=== PATIENT | female | born 1995 | race Caucasian/White ===

== ENCOUNTER 2017-10-12 07:54 | Emergency (ER) | payer MEDICAID, SELFPAY ==
[2017-10-12 07:55] VITALS: BP 115/65; PULSE 111; RESP 16; TEMP 37.2; O2SAT 96; BMI 24.7
[2017-10-12 08:00] VITALS: O2SAT 98
--- NOTE | 2017-10-12 08:15 | ED.DCSUM_ITS ---
- ER Visit Summary Date of Service: 10/12/17 Chief Complaint: Subjective fever, headache, myalgias and nonproductive cough History of Present Illness: The patient is a 21 F who presents with flulike symptoms that started yesterday. Multiple family members are presently in the ER with similar symptoms. She complained of subjective fevers myalgias yesterday. She states she has a headache and her headache is worse with coughing. Her cough is nonproductive. She does report nasal congestion and mild postnasal drainage. She denies ear pain. She denies any GI or symptoms. She denies rash. Denies swelling of her joints. She is a smoker. Please read written note for complete detail Physical Examination: Patient's vitals remarkable for heart rate of 111. Head is atraumatic normocephalic. Pupils are equal round reactive. Extraocular muscles are intact. TMs are pearly white with landmarks noted. Nares patent with clear drainage. Posterior pharynx without erythema or exudate. Uvula is midline. There is no dysphonia or dysphasia. Trachea is midline. There is no stridor with auscultation of the neck. Neck is supple. Heart is rapid and regular without murmur, gallop or rub. S1 and S2 are normal. Lungs are clear to auscultation with good movement of air bilaterally. No rash or skin lesions noted. Neuro exam is nonfocal. Test Results: None were obtained Emergency Department Course and Treatment: Since patient symptoms started less than 24 hours ago and she wishes not to miss work will prescribe Tamiflu. Treatment Plan: Prescription for Tamiflu and work excuse for today Disposition: Discharged to home with family members Impression: Influenza This note was generated with [employer] dictation software. It may contain incorrect words, spelling, and punctuation that were not noted in review of the chart prior to signing ED Disposition - Plan for ED Patient: Disposition: Home or Assisted Living Chief Complaint: Cold Sx Instructions: ED Flu Prescriptions: Oseltamivir Phosphate [Tamiflu] 75 mg PO BID #10 cap Referrals: Care Physician,No Primary [Primary Care Provider] - Additional Instructions: Recommend you contacting [place], your insurance carrier, for referral to new physician since Dr. Flores and is no longer in the area. It is in your best interest to stop smoking. Because you smoke you may call for 2-4 weeks. Your prescription was electronically transmitted to [facility]
[2017-10-12 08:25] VITALS: RESP 14; O2SAT 97
== END 2017-10-12 08:25 | disposition home or self-care (01) ==
PROVIDERS: Emergency Provider Emergency Medicine
DX: J11.1 Influenza due to unidentified influenza virus with other respiratory manifestations (principal); F17.200 Nicotine dependence, unspecified, uncomplicated
CPT/HCPCS: 99282

== ENCOUNTER → 2017-12-27 12:53 | Outpatient (CLI) | payer MEDICAID, SELFPAY ==
[2017-12-27 14:49] LABS: Chlamydia Trachomatis by PCR Negative (Negative); Neisserai gonorrhoeae by PCR Negative (Negative); Probe Check PASS; Sample Adequacy Control PASS; Specimen Processing Control PASS
[2017-12-28 14:36] LABS: HPV Reflexed? NOT INDICATED
== END ==
PROVIDERS: Visit Provider Obstetrics & Gynecology
DX: Z32.01 Encounter for pregnancy test, result positive (principal); Z12.4 Encounter for screening for malignant neoplasm of cervix; Z11.3 Encounter for screening for infections with a predominantly sexual mode of transmission
CPT/HCPCS: 87491; 87591; 88175; G0145

== ENCOUNTER → 2018-01-13 11:01 | Outpatient (CLI) | payer MEDICAID, SELFPAY ==
--- NOTE | 2018-01-13 11:01 | DT_ITS ---
This patient was seen during an EMR downtime January 09, 2018 - January 16, 2018. This patient may have a combination of paper and electronic documentation or all paper documentation. All documentation is viewable within the e-chart portion of [employer] for each patient visit.
[2018-01-16 11:37] LABS: HIV - WCH Non-Reactive (Nonreactive); Rubella IgG 110.8 IU/mL
[2018-01-16 18:21] LABS: Hemoglobin 14.3 g/dl (12.0-15.0); Mean Corp Hgb Conc 34.9 g/gl (32-36); Mean Corpuscular Hgb 29.7 pg (27.0-32.0); Mean Corpuscular Volume 85.2 fL (81-99); Mean Platelet Vol. 10.8 fl (6.2-12.0); Platelet Count 317 K/mm3 (150-450); RBC Distribution Width CV 13.3 % (11.6-14.6); Red Blood Count 4.81 M/mm3 (4.2-5.4); Scan Indicated on CBC? Y/N NO; White Blood Count 10.2 K/mm3 (4.4-11.0)
[2018-01-17 15:58] LABS: Thyroid Stim Hormone (TSH) 2.36 uIU/mL (0.358-3.74)
[2018-01-17 15:59] LABS: Amphetamine Urine VISTA NEGATIVE (<1000 ng/mL); Barbiturate Urine VISTA NEGATIVE (< 200 ng/mL); Benzodiazepine Urine VISTA NEGATIVE (< 200 ng/mL); COTININE Drug Screen Positive (<200 ng/mL); Cocaine Urine VISTA NEGATIVE (< 300 ng/mL); Ecstacy Urine VISTA NEGATIVE (< 500 ng/mL); Methadone Urine VISTA NEGATIVE (< 300 ng/mL); PCP Urine VISTA NEGATIVE (< 25 ng/mL); THC Urine VISTA POSITIVE (< 50 ng/mL)
[2018-01-17 16:03] LABS: Glucose, Dipstick Normal (Normal); Ketone-Dipstick Negative (Negative); Leukocyte Esterase-Dipstick Negative /ul (Negative); Nitrite-Dipstick Negative (Negative); Protein-Dipstick Negative (Negative); Specific Gravity, Urine 1.005 (1.002-1.030); Urine Bilirubin Dipstick Negative (Negative); Urine Clarity Clear (Clear); Urine Urobilinogen Normal (Normal)
[2018-01-17 16:04] LABS: Occult Blood-Urine Negative /ul (Negative)
[2018-01-17 16:06] LABS: Color, Urine Straw (Yellow)
[2018-01-20 03:47] LABS: Prenatal RPR NONREACTIVE (NONREACTIVE)
== END ==
PROVIDERS: Visit Provider Obstetrics & Gynecology
DX: Z34.81 Encounter for supervision of other normal pregnancy, first trimester (principal)
CPT/HCPCS: 36415; 80307; 81002; 84443; 85027; 86703; 86762; 86803; 87340

== ENCOUNTER 2018-01-18 20:04 | Emergency (ER) | payer MEDICAID, SELFPAY ==
[2018-01-18 20:05] VITALS: BP 112/54; PULSE 91; RESP 16; TEMP 36.9; O2SAT 98; BMI 24.5
[2018-01-18 20:55] LABS: Pregnancy, Serum, hCG Quali. POSITIVE Negative (0-9 Nonpreg)
--- NOTE | 2018-01-18 21:05 | ED.RN ---
lab called with positive results. positive . dr. renee made aware. no new orders at this time
[2018-01-18] MEDS: Acetaminophen 325 MG Tablet 650 MG PO (21:17)
[2018-01-18 21:19] LABS: Absolute Lymphocyte Count 2.44 X10^3/ul (0.83-4.51); Absolute Neutrophil Count 9.4 X10^3/uL (2.0-7.7); Basophil# 0.02 X10^3/uL; Basophil% 0.1 % (0-1); Eosinophil# 0.12 X10^3/uL; Eosinophils% 0.9 % (0-5); Hematocrit 38.4 % (37-47); Hemoglobin 13.1 g/dl (12.0-15.0); Lymphocyte # 2.44 X10^3/ul (4.0); Lymphocyte % 18.1 % (19-41); Mean Corp Hgb Conc 34.1 g/gl (32-36); Mean Platelet Vol. 10.1 fl (6.2-12.0); Monocyte% 11.1 % (0-10); Neutrophil # 9.37 X10^3/uL (2.7-7.7); Neutrophil % 69.6 % (47-70); Platelet Count 289 K/mm3 (150-450); RBC Distribution Width CV 13.3 % (11.6-14.6); RBC Distribution Width SD 41.1 fl (35.1-43.9); Red Blood Count 4.52 M/mm3 (4.2-5.4); White Blood Count 13.5 K/mm3 (4.4-11.0)
[2018-01-18 21:26] LABS: Bacteria 0 SEEN /hpf (None Seen); Mucous, Urine 0 SEEN /hpf (<or=2+); Red Blood Cells-Urine 0 SEEN /hpf (0-5); Squamous Epithelial Cells - UA 0 SEEN /hpf (5-10); White Blood Cells 0 SEEN /hpf (0-5)
[2018-01-18 21:26] LABS: POSITIVE COUNT NO; POSITIVE DIFFERENTIAL NO; POSITIVE MORPHOLOGY NO
[2018-01-18 21:27] LABS: Color, Urine Yellow (Yellow); Glucose, Dipstick Normal (Normal); Ketone-Dipstick Negative (Negative); Leukocyte Esterase-Dipstick Negative /ul (Negative); Nitrite-Dipstick Negative (Negative); Occult Blood-Urine Negative /ul (Negative); Protein-Dipstick Negative (Negative); Urine Bilirubin Dipstick Negative (Negative); Urine Clarity Clear (Clear); Urine Urobilinogen Normal (Normal)
[2018-01-18 21:32] LABS: Anion Gap 10 (5-15); BUN 8 mg/dL (7-18); BUN/Creat Ratio 11.5 RATIO (10-20); Calcium,Total 8.9 mg/dL (8.5-10.1); Chloride 105 mmol/L (98-107); EST Glomerular Filtration Rate 111 mL/min (>60); Est Glom Filt Rate - Afr Amer 134 mL/min (>60); Estimated Creatinine Clearance 107.93 ml/min; Glucose 101 mg/dL (74-106); Potassium 3.5 mmol/L (3.5-5.1); Sodium Level 136 mmol/L (136-145)
[2018-01-18 22:29] VITALS: BP 123/77; PULSE 65; RESP 18; O2SAT 100
--- NOTE | 2018-01-18 22:39 | ED.DCSUM_ITS ---
- ER Visit Summary Date of Service: 01/18/18 Chief Complaint: Abdominal pain, History of Present Illness: The patient is a 22 F with sudden onset of left- sided abdominal pain at work tonight. 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 She denies that she was lifting or doing anything out of the ordinary. She denies nausea or vomiting. She has had no dysuria. She is currently 10 weeks . She has had no spotting or bleeding. She has already had an ultrasound which confirmed an intrauterine . Physical Examination: Vital signs are unremarkable. Patient sitting upright in bed no acute distress. Head neck examination is normal. Heart is regular rate and rhythm. Lung sounds are clear. Abdomen is soft with left-sided abdominal tenderness along the oblique muscles. There is no guarding or rebound. Active bowel sounds are noted throughout. She has no CVA tenderness. Test Results: CBC and chemistry studies are significantly for white count of 13.5 with normal differential. Urinalysis is normal. Emergency Department Course and Treatment: Patient was given IV fluids along with Tylenol. On repeat evaluation she is resting comfortably. I expressed to her that I believe this is all wall pain. She has already had an ultrasound which confirmed an intrauterine . I do not feel repeat imaging is needed at this time. Treatment Plan: [] Disposition: Discharge Impression: Abdominal wall pain This note was generated with [employer] dictation software. It may contain incorrect words, spelling, and punctuation that were not noted in review of the chart prior to signing ED Disposition - Plan for ED Patient: Chief Complaint: Abd Pain Referrals: Care Physician,No Primary [Primary Care Provider] -
--- NOTE | 2018-01-18 22:39 | ED.DEP ---
ED Disposition - Plan for ED Patient: Disposition: Home or Assisted Living Chief Complaint: Abd Pain Instructions: ED Strain Abdominal Muscle Referrals: Eleuterio Watt MD [STAFF PHYSICIAN] - As Needed
== END 2018-01-18 22:47 | disposition home or self-care (01) ==
PROVIDERS: Emergency Provider Emergency Medicine
DX: O26.891 Other specified pregnancy related conditions, first trimester (principal); R10.9 Unspecified abdominal pain; O99.331 Smoking (tobacco) complicating pregnancy, first trimester; Z3A.10 10 weeks gestation of pregnancy
CPT/HCPCS: 36415; 80048; 81001; 84703; 85025; 99283

== ENCOUNTER → 2018-03-06 09:19 | Outpatient (CLI) | payer MEDICAID, SELFPAY ==
[2018-03-13 20:08] LABS: AFP MoM Value 0.97 (.); AFP Value-EIA 35.2 ng/mL (.); Comment Report (.); DIA MoM Value 1.55 (.); DIA Value-EIA 253.95 pg/mL (.); DSR (By Age) 1081 (.); DSR (Second Trimester) 3759 (.); Gestational Age 16.9 WEEKS (.); Insulin Dep Diabetes No (.); Maternal Age At EDD 23.7 yr (.); hCG MoM 0.76 (.)
[2018-03-14 15:17] LABS: CF, Screen Comment: (.); Gestat. Age Based On Ultrasound (.)
== END ==
PROVIDERS: Visit Provider Obstetrics & Gynecology
DX: Z34.82 Encounter for supervision of other normal pregnancy, second trimester (principal)
CPT/HCPCS: 36415; 81220; 82105; 82677; 84702; 86336

== ENCOUNTER → 2018-05-23 08:41 | Outpatient (CLI) | payer MEDICAID, SELFPAY ==
[2018-05-23 11:06] LABS: Hematocrit 35.9 % (37-47); Hemoglobin 11.8 g/dl (12.0-15.0); Mean Corp Hgb Conc 32.9 g/gl (32-36); Mean Corpuscular Hgb 29.6 pg (27.0-32.0); Mean Corpuscular Volume 90.2 fL (81-99); Mean Platelet Vol. 10.1 fl (6.2-12.0); Platelet Count 301 K/mm3 (150-450); RBC Distribution Width SD 42.2 fl (35.1-43.9); Red Blood Count 3.98 M/mm3 (4.2-5.4); White Blood Count 17.2 K/mm3 (4.4-11.0)
[2018-05-23 11:07] LABS: Scan Indicated on CBC? Y/N NO
[2018-05-23 11:14] LABS: Glucose Challenge Gest 1H 50g 96 mg/dL (70-140)
== END ==
PROVIDERS: Visit Provider Obstetrics & Gynecology
DX: Z34.82 Encounter for supervision of other normal pregnancy, second trimester (principal)
CPT/HCPCS: 36415; 82950; 85027

== ENCOUNTER 2018-05-25 18:00 | Outpatient (CLI) | payer MEDICAID, SELFPAY ==
[2018-05-25 18:14] VITALS: BMI 31.6
[2018-05-25 18:27] LABS: Bacteria 0 SEEN /hpf (None Seen); Mucous, Urine 0 SEEN /hpf (<or=2+); Squamous Epithelial Cells - UA 0 SEEN /hpf (5-10); White Blood Cells 0 SEEN /hpf (0-5)
[2018-05-25 18:34] LABS: Color, Urine Red (Yellow); Glucose, Dipstick Normal (Normal); Ketone-Dipstick Negative (Negative); Leukocyte Esterase-Dipstick 100 /ul (Negative); Nitrite-Dipstick Negative (Negative); Occult Blood-Urine 250 /ul (Negative); Protein-Dipstick 30 mg/dl (Negative); Urine Bilirubin Dipstick Negative (Negative); Urine Clarity Sl. Cloudy (Clear); Urine Urobilinogen Normal (Normal)
[2018-05-25 19:05] LABS: Red Blood Cells-Urine > 100 SEEN /hpf (0-5)
[2018-05-25] MEDS: Lactated Ringers 1,000 ML 999 ML IV (19:20)
[2018-05-25] MEDS: Cefazolin 1 GM/50 ML BAG IV (19:40)
--- NOTE | 2018-05-25 20:35 | OB.TRI.HP_ITS ---
History of Present Illness Date of Service: 06/04/18 Was patient seen by the physician?: Yes Reason For Visit: PELVIC PRESSUSRE, SPOTTING Date of Service: 05/25/18 Final STEPHEN: 08/15/18 Gestational age: 28 Weeks and 2 Days History of Present Illness: 28 plus week intrauterine presents with hematuria. Patient denies any nausea vomiting fever chills pain of any kind. Perhaps slight pelvic pressure but otherwise no symptoms. Good movement is noted. She has had bladder infections in the past but this does not resemble those as there are no symptoms. Allergies No Known Allergies Allergy (Verified 01/18/18 20:04) Laboratory Studies: Laboratory Tests 05/25/18 Range/Units 18:20 Urine Color Red (Yellow) Urine Clarity Sl. Cloudy (Clear) Urine pH 7.0 (5.0 - 8.0) Ur Specific [place] 1.010 (1.002-1.030) Urine Protein 30 H (Negative) mg/dl Urine Glucose (UA) Normal (Normal) mg/dl Urine Ketones Negative (Negative) mg/dl Urine Occult Blood 250 H (Negative) /ul Urine Nitrite Negative (Negative) Urine Bilirubin Negative (Negative) mg/dL Urine Urobilinogen Normal (Normal) mg/dl Ur Leukocyte Esterase 100 H (Negative) /ul Urine RBC > 100 SEEN (0-5) /hpf Urine WBC 0 SEEN (0-5) /hpf Ur Squamous Epith Cells 0 SEEN (5-10) /hpf Urine Bacteria 0 SEEN (None Seen) /hpf Urine Mucus 0 SEEN (<or=2+) /hpf NST - FHR Rate Baby A Decelerations:: None NST Reactive:: Appropriate for gestational age Impression/Plan 28+ week intrauterine with hematuria. Presumed urinary tract infection. No evidence of labor or compromise. Cervix is closed, thick, high without blood noted in the vagina. heart tones reassuring. Minimal uterine irritability noted. Urine analysis with blood but no bacteria noted. Will send urine for culture and sensitivity and treat with Ancef 1 g tonight and then release home and await urine culture results. Return to office early next week for follow-up.
== END 2018-05-25 20:40 | disposition home or self-care (01) ==
LOC: WPOUT 18:06 → WP 18:07
PROVIDERS: Referring Provider Obstetrics & Gynecology; Visit Provider Obstetrics & Gynecology
DX: O26.892 Other specified pregnancy related conditions, second trimester (principal); R31.9 Hematuria, unspecified; Z3A.28 28 weeks gestation of pregnancy
CPT/HCPCS: 96365; 59025; 59050; 81001; 87086; 87088; 99218; J7120; G0378

== ENCOUNTER 2018-05-30 22:01 | Emergency (ER) | payer MEDICAID, SELFPAY ==
[2018-05-30 22:02] VITALS: BP 127/78; PULSE 112; RESP 16; TEMP 36.6; O2SAT 98; BMI 31.8
--- NOTE | 2018-05-30 22:23 | ED.VISSUMM ---
- ER Visit Summary Date of Service: 05/30/18 Chief Complaint: Atraumatic left knee pain History of Present Illness: The patient is a 22 F is currently [address] Watt of [facility]. Patient's due date is August 15. She is a prior history in 2014 and being in a severe 3 [place] accident which left knee and femur. Had surgical repair at that time done in [place]. Since that time she is done well. States for the last 4 days she has had some discomfort and swelling to her left knee. No fever. No chills. No obvious trauma. She states it feels like it is getting give out. She denies any significant redness or warmth. No lower leg pain or swelling. Physical Examination: Well-appearing young female. Vital signs are stable. She is afebrile. She does not look septic or toxic. She is in no acute distress. Her mom is at bedside. H EENT exam unremarkable. Neck nontender no lymphadenopathy. Lungs clear to auscultation bilaterally. Heart regular rhythm no murmur rate about 110. Abdomen soft. Nontender. Gravid nontender uterus. Moving all 4 extremities. Neurovascularly intact. Her left hip is nontender nonswollen. Her left knee mild swelling. Mild effusion. Well-healed prior surgical scars. She has full flexion extension of the left knee. She can lift her entire left leg off the bed. There is no redness. No warmth. When she flexes her knee there is obvious crepitance. Distally the calf ankle and foot are nontender. Neurovascularly intact. No edema. Palpable DP pulse. Normal dorsi and plantar flexion. Normal motor strength and sensation in her left foot. Neurologic exam normal. No focal motor or sensory deficits. Test Results: Left knee x-ray decreased joint space. Old orthopedic hardware. Left femur no acute injury. Well-healed distal femur fracture with orthopedic hardware and screws. The screws and the plate appear to be in normal alignment. Emergency Department Course and Treatment: Repeat exam doing well at 2305. Recheck temperature 98.1. Knee has an effusion but is not warm or red. Does not appear to be a septic joint. Treatment Plan: Patient is our main appointment for June 08 with [facility]. Ice and elevate. Tylenol for pain. This makes it was my watch for any signs of infection. Disposition: Discharge Impression: Acute on chronic left knee pain with joint effusion Prior history of traumatic knee injury with prior orthopedic repair and hardware at 29 weeks This note was generated with [employer] dictation software. It may contain incorrect words, spelling, and punctuation that were not noted in review of the chart prior to signing ED Disposition - Plan for ED Patient: Chief Complaint: Lower Extremity Injury Referrals: Care Physician,No Primary [Primary Care Provider] -
--- NOTE | 2018-05-30 22:30 | RAD_ITS ---
STUDY: X-RAY - LEFT KNEE REASON FOR EXAM: Female, 22 years old. Left knee pain TECHNIQUE: 3 view(s) of the knee. COMPARISON: None. FINDINGS: There is healed fracture in distal left femur. Hardware from internal fixation is still present at the lateral aspect of the distal femur. Normal visualized proximal tibia and fibula. Normal proximal tibiofibular articulation. Normal medial femorotibial compartment. Normal lateral femorotibial compartment. Normal patellofemoral articulation. The soft tissue structures are unremarkable. RAD/Knee 3 Views IMPRESSION: Normal x-ray examination of the knee. Electronically Signed: Liv Villeda MD at 6:00 EDT Tel , Service support ,
--- NOTE | 2018-05-30 22:37 | RAD_ITS ---
STUDY: X-RAY - LEFT FEMUR REASON FOR STUDY: Female, 22 years old. Left knee pain TECHNIQUE: Radiological exam, femur, minimum 2 views COMPARISON: None. FINDINGS: Old healed distal femur fracture. Normal visualized soft tissue structure. Side plate and screws transfix the distal femur. RAD/Femur Min 2 Views IMPRESSION: No acute disease. Status post remote ORIF healed distal femur fracture. Electronically Signed: Jude Martinez MD at 22:58 EDT , Service support ,
--- NOTE | 2018-05-30 23:11 | ED.DEP ---
ED Disposition - Plan for ED Patient: Disposition: Home or Assisted Living Chief Complaint: Lower Extremity Injury Instructions: ED Knee Pain UKO Referrals: Amish Salmon MD [STAFF PHYSICIAN] - Keep Kwadwo appointment Additional Instructions: Ice and elevate. Tylenol for pain. Follow-up with [facility]. Return if fever or redness.
== END 2018-05-30 23:25 | disposition home or self-care (01) ==
PROVIDERS: Emergency Provider Emergency Medicine
DX: O26.893 Other specified pregnancy related conditions, third trimester (principal); M25.462 Effusion, left knee; M25.562 Pain in left knee; Z3A.29 29 weeks gestation of pregnancy; O99.333 Smoking (tobacco) complicating pregnancy, third trimester
CPT/HCPCS: 73552; 73562; 99282

== ENCOUNTER → 2018-07-18 13:13 | Outpatient (CLI) | payer MEDICAID, SELFPAY ==
--- OUTSIDE RECORDS SUMMARY | 2018-09-03 17:11 | XMS RPT_ITS ---
:1995 Author Organization OHIP Support Name Relationship Address Phone HOLLOWAYWILBERLUH Unavailable Unavailable + [place] [address] UE Unavailable Unavailable Unavailable HOLLOWAY, LUH Unavailable Unavailable + [place] [address] UE Unavailable Unavailable Unavailable HERHO Unavailable [address] [facility] [address] + [place] [address] HOLLOWAY, LUH Unavailable Unavailable + [place] [address] HERHO Unavailable [address] [facility] + [place] [address] HOLLOWAY, LUH Unavailable Unavailable + [place] [address] HERHO Unavailable [address] [facility] [facility] [address] + [place] [address] HOLLOWAY, LUH Unavailable Unavailable + [place] [address] HERHO Unavailable [address] [facility]. + [place] [address] HOLLOWAY, LUH Unavailable Unavailable + [place] [address] HERHO Unavailable [address] + [place] [address] HOLLOWAY, LUH Unavailable Unavailable + [place] [address] HERHO Unavailable [address] [facility] [address] + [place] [address] HOLLOWAY, LUH Unavailable Unavailable + [place] [address] HERHO Unavailable [address] [facility]. + [place] [address] HOLLOWAY, LUH Unavailable Unavailable + [facility] [place] [address] SUBWAY Unavailable [address] + [place] [address] WILBER HOLLOWAYNIE Unavailable Unavailable + [place] [address] SUBWAY Unavailable [address] + [place] [address] WILBER HOLLOWAYNIE Unavailable Unavailable + [facility] [address] Care Team Providers Name Role Phone Shukri, Eleuterio Attending Unavailable Primay Care Physicia, No Primary Care Unavailable Seals, Eleuterio Admitting Unavailable Seals, Eleuterio Attending Unavailable Seals, Eleuterio Referring Unavailable Primay Care Physicia, No Primary Care Unavailable Elizabeth So Attending Unavailable Primay Care Physicia, No Primary Care Unavailable Primay Care Physicia, No Primary Care Unavailable Edis Phan Attending Unavailable Seals, Eleuterio Attending Unavailable Primay Care Physicia, No Primary Care Unavailable Seals, Eleuterio Referring Unavailable Cindy Sandoval Attending Unavailable Primay Care Physicia, No Primary Care Unavailable Primay Care Physicia, No Primary Care Unavailable Joselyn Romo Attending Unavailable Seals, Eleuterio Referring Unavailable Seals, Eleuterio Attending Unavailable Primay Care Physicia, No Primary Care Unavailable Seals, Eleuterio Attending Unavailable Primay Care Physicia, No Primary Care Unavailable Berlin Garcia Attending Unavailable Wejames, Berlin Referring Unavailable Primay Care Physicia, No Primary Care Unavailable Primay Care Physicia, No Primary Care Unavailable Keanu Markham Attending Unavailable PROBLEMS PROBLEMS DATE TYPE CONDITION / CODE ATTENDING STATUS SOURCE 08/22/2018 Unknown G89.18 - Other acute SealEleuterio capone Active [facility] post[facility]cedural pain [facility] / G89.18(ICD-10) Hospital Repository 07/18/2018 Unknown Z36.85 - Encounter Eleuterio Watt Active [facility] for Community screening for Hospital Streptococcus B / Repository Z36.85(ICD-10) 05/23/2018 Unknown Z34.82 - Encounter Eleuterio Watt Active [place] for supervision of Community other normal Hospital , second Repository trimester / Z34.82(ICD-10) 02/01/2018 Unknown Z34.81 - Encounter Cindy Sandoval Active [place] for supervision of Community other normal Hospital , first Repository trimester / Z34.81(ICD-10) 12/28/2017 Unknown Z32.01 - Encounter Eleuterio Watt Active [facility] for test, Community result positive / Hospital Z32.01(ICD-10) Repository 12/28/2017 Unknown Z12.4 - Encounter Eleuterio Watt Active [facility] for screening for Community malignant neoplasm Hospital of cervix / Repository Z12.4(ICD-10) 12/28/2017 Unknown Z11.3 - Encounter Eleuterio Watt Active [facility] for screening for Community infections with a Hospital predominantly sexual Repository mode of transmission / Z11.3(ICD-10) PROCEDURES PROCEDURES No Procedure Records FoundRESULTS RESULTS DISCHARGE SUMMARY Observed: 08/22/2018 Status: F Source: [place] 8:33 AM [facility] REPOSITORY [facility] Medical Records Department [address] [place] [address] Discharge Summary 08/22/18 0830 MR#: [id number] Acct: [id number] Name: EARNEST KURTZ Rep #: [id number] : 1995 22 From: Eleuterio Watt MD PCP: Care Physician, No Primary Status: ADM IN Location: [place] [address] Discharge Date and Diagnosis - Problem List Patient Problems: Active and Suspected Problems Arrest of dilation, delivered, current hospitalization (Acute) Date of Admission: 08/19/18 Date of Discharge: 08/22/18 - Primary Discharge Diagnosis Active and Suspected Problems Arrest of dilation, delivered, current hospitalization (Acute), S/P Primary LTCS Hospital Course and Treatment Operations: - - Primary LTCS Procedures: - - Pitocin induction, epidural Summary of Care Provided: The patient is a 22 year old F admitted for post dates induction of labor. Arrested at 7 cm dilation. Primary LTCS performed without complication with delivery of a live wihtout complication. Post operative course unremarkable. Discharged home on POD#2.[] Patient Problems: Active and Suspected Problems Arrest of dilation, delivered, current hospitalization (Acute) - Physical Exam Vital Signs Temp Pulse Resp BP Pulse Ox 97.4 F L 83 14 105/72 100 08/22/18 08:26 08/22/18 08:26 08/22/18 08:26 08/22/18 08:26 08/21/18 20:24 Oxygen Delivery Method Room Air Weight: 219 lb 5.759 oz Body Mass Index (BMI) 37.6 Intake and Output for Last 24 Hours Intake Total 4298 / 4298 2133 / 2133 Output Total 1800 / 1800 2900 / 2900 Balance 2498 / 2498 -767 / -767 Laboratory Tests Past 24 Hrs WBC 19.8 H Discharge Diet: No Restrictions Discharge Activity: Return to Normal Activity, May Not Drive, May not drive while taking narcotic pain medications., May Shower Return to work on:: 10/18/18 May shower in (days): 0 May resume sexual activity in: 4-6 weeks Call your doctor if your incision/area has: Sudden Increased Bleeding, Increased Pain/ Swelling, Increased Redness, Foul Smelling Discharge, Swelling at the incision site Call your doctor if you observe: Fever of 101 or Higher, Inability to urinate, Inability to have a bowel movement, Using more than one pad per hour, Shortness of breath, Chest pain, Calf discomfort, Uncontrolled pain Remove Dressing in (days):: 3 Cleanse incision/area with: Soap AND Water Home Medications: Medications to take at Discharge RX: Vits [Prenatabs FA ] 1 tablet PO DAILY 07/30/18 RX: Ibuprofen 600 mg PO 4X/DAY #30 tab 08/20/18 RX: Oxycodone [Oxyir] 5 - 10 mg PO Q4H PRN PRN 7 Days #28 tab 08/20/18 Following Prescrptions Were Given to Patient: RX: Oxycodone [Oxyir] 5 - 10 mg PO Q4H PRN PRN 7 Days #28 tab PRN Reason: Mod-Severe Pain () RX: Ibuprofen 600 mg PO 4X/DAY #30 tab Primary Care Physician: Care Physician,No Primary [Primary Care Provider] - Please Follow Up With: Eleuterio Watt MD When: 1-2 weeks Disposition: Home Minutes spent on discharge:: 15 Patient Condition:: Good Medical Necessity - Tobacco Use Smoking Status: Current every day smoker Meaningful Use Info Meaningful Use Diagnoses (Choose all that apply): None applicable 08/22/18 6776 <Electronically signed by Eleuterio Watt MD> Date Eleuterio Watt MD Cosigner Signature (if applicable): Date CC: No Primary Care Physician; Eleuterio Watt MD Signed CBC W/DIFF, AUTOMATED Collected: 08/22/2018 Status: F Source: [place] 4:15 AM [facility] REPOSITORY TYPE CODE TESTS RESULT OUT OF RANGE REFERENCE UNITS LAB L100.1000 4.4-11.0 K/mm3 High WBC 19.8 LAB L100.1200 4.2-5.4 M/mm3 Low RBC 3.35 LAB L100.1300 12.0-15.0 g/dl Low HGB 9.2 LAB L100.1400 37-47 % Low HCT 28.8 LAB L100.1500 81-99 fL Normal MCV 86.0 LAB L100.1600 27.0-32.0 pg Normal MCH 27.5 LAB L100.1700 32-36 g/gl Low MCHC 31.9 LAB L100.1810 11.6-14.6 % High RDW CV 15.7 LAB L100.1820 35.1-43.9 fl High RDW SD 47.0 LAB L100.1900 150-450 K/mm3 Normal PLT 270 LAB L100.2000 6.2-12.0 fl Normal MPV 10.4 LAB L100.2100 47-70 % High NEUT% 74.0 LAB L100.2200 19-41 % Low LY% 12.8 LAB L100.2300 0-10 % High MONO% 10.3 LAB L100.2400 0-5 % Normal EO% 1.3 LAB L100.2500 0-1 % Normal BASO% 0.3 LAB L100.2550 0.0-0.9 % High IM GRAN % 1.300 Result Comment: IG% - Immature Granulocytes (promyelocytes, myelocytes and metamyelocytes) > 1% indicates that a LEFT SHIFT is Present. LAB L100.2620 2.0-7.7 X10 3/uL High Absolute Neut 14.7 LAB L100.2720 0.83-4.51 X10 3/ul Normal Absolute Lymph 2.54 Performed By: #### L100.0100 #### [facility] [address] [place], [address] CBC-COMPLETE BLOOD CNT Collected: 08/21/2018 Status: F Source: [place] NO DIFF 6:00 AM [facility] REPOSITORY Order Comment: Comments: Day #1 Reason for Laboratory Test TYPE CODE TESTS RESULT OUT OF RANGE REFERENCE UNITS LAB L100.1000 4.4-11.0 K/mm3 High WBC 20.8 LAB L100.1200 4.2-5.4 M/mm3 Low RBC 3.25 LAB L100.1300 12.0-15.0 g/dl Low HGB 8.9 LAB L100.1400 37-47 % Low HCT 28.1 LAB L100.1500 81-99 fL Normal MCV 86.5 LAB L100.1600 27.0-32.0 pg Normal MCH 27.4 LAB L100.1700 32-36 g/gl Low MCHC 31.7 LAB L100.1810 11.6-14.6 % High RDW CV 15.5 LAB L100.1820 35.1-43.9 fl High RDW SD 46.4 LAB L100.1900 150-450 K/mm3 Normal PLT 235 LAB L100.2000 6.2-12.0 fl Normal MPV 10.4 Performed By: #### L100.0500 #### [facility] [address] [place], [address] DISCHARGE INSTRUCTION Observed: 08/20/2018 Status: F Source: [place] 11:27 AM [facility] REPOSITORY [facility] Medical Records Department [address] [place] [address] Instructions for Home/Discharge Instructions 08/20/18 1126 MR#: [id number] Acct: [id number] Name: EARNEST KURTZ Rep #: [id number] : 1995 22 From: Eleuterio Watt MD PCP: Care Physician, No Primary Status: ADM IN Discharge Diet: No Restrictions Discharge Activity: Return to Normal Activity, May Not Drive, May not drive while taking narcotic pain medications., May Shower Return to work on:: 10/18/18 May shower in (days): 0 May resume sexual activity in: 4-6 weeks Call your doctor if your incision/area has: Sudden Increased Bleeding, Increased Pain/ Swelling, Increased Redness, Foul Smelling Discharge, Swelling at the incision site Call your doctor if you observe: Fever of 101 or Higher, Inability to urinate, Inability to have a bowel movement, Using more than one pad per hour, Shortness of breath, Chest pain, Calf discomfort, Uncontrolled pain Remove Dressing in (days):: 3 Cleanse incision/area with: Soap AND Water Additional Instructions: If you experience any of the following, contact your healthcare provider. * Bleeding that soaks a pad every hour for 2 hours * Fever 100.4 or higher * Unrelieved incision or abdominal pain * Swelling, redness, discharge or bleeding from your incision or episiotomy site * Your incision begins to separate * Problems urinating (including inability to urinate or burning while urinating). * Visual changes * Severe headache * Flu-like symptoms * Pain or redness in one of both of your breasts * Pain, warmth, tenderness or swelling in your legs, especially the calf area * Frequent nausea and vomiting * Symptoms of depression or anxiety If you experience any of the following, call 911 or go to the nearest Emergency Room. * Chest pain * Problems breathing * Seizure activity * Partial or complete paralysis of a body part, slurred speech, weakness or drooping of the face, or a sudden inability to walk or hold your balance Allergies/Adverse Reactions: Allergies No Known Allergies Allergy (Verified 07/30/18 13:42) Medications to take at Discharge Vits [Prenatabs FA ] 1 tablet PO DAILY 07/30/18 Ibuprofen 600 mg PO 4X/DAY #30 tab 08/20/18 Oxycodone [Oxyir] 5 - 10 mg PO Q4H PRN PRN 7 Days #28 tab 08/20/18 The following prescriptions were given: Oxycodone [Oxyir] 5 - 10 mg PO Q4H PRN PRN 7 Days #28 tab PRN Reason: Mod-Severe Pain (4-05/17) Ibuprofen 600 mg PO 4X/DAY #30 tab Follow-Up: Call to make an appointment with your doctor for an incision check in 1-2 weeks. You will also need a 6 week post- follow up appointment. Test results from this visit will be discussed in further detail at your follow-up appointment, if applicable. Please Follow Up With: Eleuterio Watt MD When: 1-2 weeks Primary Care Physician: Care Physician,No Primary [Primary Care Provider] - Proposed Discharge Date: 08/22/18 08/20/18 1127 <Electronically signed by Eleuterio Watt MD> Date Eleuterio Watt MD CC: No Primary Care Physician Signed OPERATIVE REPORT Observed: 08/20/2018 Status: F Source: [place] 11:23 AM [facility] REPOSITORY [facility] Medical Records Department [address] [place] [address] Operative Report 08/20/18 1106 MR#: [id number] Acct: [id number] Name: EARNEST KURTZ Rep #: [id number] : 1995 22 From: Eleuterio Watt MD PCP: Care Physician, No Primary Status: ADM IN Y Location: [id number] Problem List (1) Arrest of dilation, delivered, current hospitalization Status: Acute Report of Operation Date of Procedure: 08/20/18 Pre-Operative Diagnosis: Arrest of Dilation, Failed post dates induction Post-Operative Diagnosis: Same Surgery/Procedure Performed:: Primary Low Transverse Section Description of Surgical Findings:: Maximum cervical dilation of 7cm. 28 hour induction. Normal appearing uterus, ovaries, and fallopian tubes. Amniotic fluid clear. Normal appearing placenta. Delivery of live female with APGARs of 9/9. weight 8lb7oz. vertex in ROP position fish net stringer: William Mayfield Type of Anesthesia:: Epidural Anesthesiologist: Sabino Garcia Special Medications: none Specimen's removed: none Drains: [place] Estimated Blood Loss (mL): 600 Fluids Replaced: 1500cc LR Description of Procedure: Earnest was informed of indication for delivery (arrest of dilation). Procedures, risks, and postoperative expectations reviewed. All questions were answered prior to taking her to the OR. She was taken to the OR with IV running. She was given two grams of Ancef intravenously for surgical prophylaxis. Her epidural was dosed and tested for adequacy. She was prepped and draped in the supine position with a leftward tilt. A Pfannesteil skin incision was then made with the scalpel. The underlying subcutaneous tissue was dissected down to the level of the fascia with sharp and blunt dissection. The fascia was then incised in the midline and this incision was extended bilaterally with the Gonzalez scissors. The upper portion of the fascial defect was then grasped with two Damion clamps, elevated and the rectus muscles were dissected off with blunt and sharp dissection. In a similar fashion the rectus muscles were dissected off the lower fascial defect. The rectus muscles were then sep-arated in the midline, the peritoneum identified and entered sharply. The peritoneal defect was the enlarged using blunt retraction. A bladder blade was placed. A bladder flap was created and the bladder blade replaced. The lower uterine segment was then incised transversely. Once the cavity was entered the uterine defect was enlarged using blunt lateral and superior traction. The baby's head and body was then delivered atraumatically. The nares and mouth were suctioned with a bulb suction. The baby was dried and stimulated with a good cry noted. Delayed cord clamping was employed. The cord was then clamped and cut. The baby was handed to the waiting nurse for evaluation. The placenta was then delivered manually, the uterus exteriorized, and then the cavity was cleared of all clot and membranes. The uterine incision was repaired in two layers with #1 Vicryl suture. The posterior cul de sac was cleared of all clot and fluid. The uterus was then returned to the abdomen. The gutters were cleared of all clot and fluid. The uterine incision was then reinspected and found to be hemostatic. The pritoneum was closed with a running stitch of 2-0 Vicryl suture. The rectus muscles were reapproximated with interrupted sutures of 0-Vicryl. The fascia was closed with a running stitch of #1 Stratofix suture. The subcutaneous tissue was closed with a running stitch of 2-0 Vicryl. The skin was closed with a subcuticular stitch of 4-0 Monocryl. Sponge, lap, needle, and instrument counts were correct. SHe was taken to her recovery room in stable condition. Grafts/Implants Used: none - Complications none - Admit VTE Documentation VTE Present on Admission: No VTE Mechan Device Prophylaxis: SCD's VTE Pharm Prophylaxis ordered?: No 08/20/18 1123 <Electronically signed by Eleuterio Watt MD> Date Eleuterio Watt MD CC: No Primary Care Physician; Eleuterio Watt MD Signed OPERATIVE REPORT Observed: 08/20/2018 Status: F Source: [place] 11:06 AM [facility] REPOSITORY [facility] Medical Records Department [address] [place] [address] Operative Report 08/20/18 1059 MR#: [id number] Acct: [id number] Name: EARNEST KURTZ Rep #: [id number] : 1995 22 From: Eleuterio Watt MD PCP: Care Physician, No Primary Status: [facility] IN Y [id number] - Problem List (1) Arrest of dilation, delivered, current hospitalization Status: Acute Delivery Classification: HELADIO Final STEPHEN: 08/12/18 Final STEPHEN Source: US <20 weeks Gestational age: 41 Weeks and 1 Days Indications for : Failure to Progress, Failed Induction Description of Procedure: Failed to progress past 7 cm dilation with adequate contractions for over 6 hours with no cervical change during that time. Normal appearing uterus, ovaries, and fallopian tubes. Delivery of a live female with APGARs of 9/9. weight 8lb7oz. Normal apppearing placenta. Amniotic fluid clear. Amniotic Membrane Rupture Type: Artificial Amniotic Fluid Description: Clear Placenta Disposition: [facility] Drain: [place] to straight drain Fluids Replaced: 1500cc LR Cord Entanglement: None Cord Vessel Description: 3 Vessels Esitmated Blood Loss (ml): 600 Gender: Female (1 minute): 9 (5 minute): 9 Delayed cord clamping: Yes Pre-op Antibiotic Given: Ancef 2 grams IV x1 Pt instructed on risks of surgery: Bleeding, Infection, Need for Future C-Sections, Injury to surrounding structure(s) including bowel and bladder Complications: None - Admit VTE Documentation VTE Present on Admission: No VTE Mechan Device Prophylaxis: SCD's VTE Pharm Prophylaxis ordered?: No 08/20/18 1106 <Electronically signed by Eleuterio Watt MD> Date Eleuterio Watt MD CC: No Primary Care Physician; Eleuterio Watt MD Signed CBC-COMPLETE BLOOD CNT Collected: 08/19/2018 Status: F Source: [place] NO DIFF 4:30 PM [facility] REPOSITORY TYPE CODE TESTS RESULT OUT OF RANGE REFERENCE UNITS LAB L100.1000 4.4-11.0 K/mm3 High WBC 16.2 LAB L100.1200 4.2-5.4 M/mm3 Low RBC 4.18 LAB L100.1300 12.0-15.0 g/dl Low HGB 11.6 LAB L100.1400 37-47 % Low HCT 35.2 LAB L100.1500 81-99 fL Normal MCV 84.2 LAB L100.1600 27.0-32.0 pg Normal MCH 27.8 LAB L100.1700 32-36 g/gl Normal MCHC 33.0 LAB L100.1810 11.6-14.6 % High RDW CV 15.2 LAB L100.1820 35.1-43.9 fl High RDW SD 46.0 LAB L100.1900 150-450 K/mm3 Normal PLT 325 LAB L100.2000 6.2-12.0 fl Normal MPV 10.9 Performed By: #### L100.0500 #### [facility] [address] [place], [address] TYPE AND SCREEN Collected: 08/19/2018 Status: F Source: [place] 4:30 PM [facility] REPOSITORY Order Comment: Reason for Type AND Screen/Red Cells: ROUTINE TYPE CODE TESTS RESULT OUT OF RANGE REFERENCE UNITS LAB B10.0800 A Normal BLOOD TYPE [place] POSITIVE LAB B100.4000 Normal Antibody NEGATIVE Screen Performed By: #### B101.7450 #### [facility] [address] [place], [address] (ROM) RUPTURE OF Collected: 07/30/2018 Status: F Source: [place] [facility] 1:35 PM [facility] REPOSITORY TYPE CODE TESTS RESULT OUT OF RANGE REFERENCE UNITS LAB L205.1310 Negative Normal ROM Negative Result Comment: Amniotic fluid not present indicates No Rupture of Membranes at time of specimen collection. Performed By: #### L205.1000 #### [facility] [address] [place], [address] Observed: 07/18/2018 Status: F Source: [place] CULTURE, GROUP B 10:00 AM [facility] REPOSITORY Comments: VAGINAL/RECTAL STEVEN Culture Group B Beta Streptococcus is not isolated. Performed By: #### M100.1800 #### [facility] [address] [place], [address] DISCHARGE INSTRUCTION Observed: 05/30/2018 Status: F Source: [place] 11:34 PM [facility] REPOSITORY [facility] Medical Records Department [address] [place] [address] Discharge Instruction 05/30/18 2311 MR#: [id number] Acct: [id number] Name: EARNEST KURTZ Rep #: [id number] : 1995 22 From: Keanu Markham MD PCP: Care Physician, No Primary Status: REG ER ED Disposition - Plan for ED Patient: Disposition: Home or Assisted Living Chief Complaint: Lower Extremity Injury Instructions: ED Knee Pain UKO Referrals: Amish Salmon MD [STAFF PHYSICIAN] - Keep Kwadwo appointment Additional Instructions: Ice and elevate. Tylenol for pain. Follow-up with [facility]. Return if fever or redness. What to do if you have Problems For any increased pain, shortness of breath, bleeding, nausea or vomiting, chest pain, or any unexpected problems, contact your Primary Care Provider. Call [facility] ([phone]) or report to the closest Emergency Room. Call 911 if necessary. 05/30/18 1068 <Electronically signed by Keanu Markham MD> Date Keanu Markham MD Cosigner Signature (If Indicated): Date CC: No Primary Care Physician EMERGENCY DEPARTMENT Observed: 05/30/2018 Status: F Source: [place] SUMMARY 11:34 PM [facility] REPOSITORY [facility] Medical Records Department [address] [place] [address] Emergency Department Summary 05/30/18 2223 MR#: [id number] Acct: [id number] Name: EARNEST KURTZ Rep #: [id number] : 1995 22 From: Keanu Markham MD PCP: Care Physician, No Primary Status: REG ER - ER Visit Summary Date of Service: 05/30/18 Chief Complaint: Atraumatic left knee pain History of Present Illness: The patient is a 22 F is currently [address] Watt of [employer]. Patient's due date is August 15. She is a prior history in 2014 and being in a severe 3 [place] accident which left knee and femur. Had surgical repair at that time done in [place]. Since that time she is done well. States for the last 4 days she has had some discomfort and swelling to her left knee. No fever. No chills. No obvious trauma. She states it feels like it is getting give out. She denies any significant redness or warmth. No lower leg pain or swelling. Physical Examination: Well-appearing young female. Vital signs are stable. She is afebrile. She does not look septic or toxic. She is in no acute distress. Her mom is at bedside. H EENT exam unremarkable. Neck nontender no lymphadenopathy. Lungs clear to auscultation bilaterally. Heart regular rhythm no murmur rate about 110. Abdomen soft. Nontender. Gravid nontender uterus. Moving all 4 extremities. Neurovascularly intact. Her left hip is nontender nonswollen. Her left knee mild swelling. Mild effusion. Well-healed prior surgical scars. She has full flexion extension of the left knee. She can lift her entire left leg off the bed. There is no redness. No warmth. When she flexes her knee there is obvious crepitance. Distally the calf ankle and foot are nontender. Neurovascularly intact. No edema. Palpable DP pulse. Normal dorsi and plantar flexion. Normal motor strength and sensation in her left foot. Neurologic exam normal. No focal motor or sensory deficits. Test Results: Left knee x-ray decreased joint space. Old orthopedic hardware. Left femur no acute injury. Well-healed distal femur fracture with orthopedic hardware and screws. The screws and the plate appear to be in normal alignment. Emergency Department Course and Treatment: Repeat exam doing well at 2305. Recheck temperature 98.1. Knee has an effusion but is not warm or red. Does not appear to be a septic joint. Treatment Plan: Patient is our main appointment for June 08 with [facility]. Ice and elevate. Tylenol for pain. This makes it was my watch for any signs of infection. Disposition: Discharge Impression: Acute on chronic left knee pain with joint effusion Prior history of traumatic knee injury with prior orthopedic repair and hardware at 29 weeks This note was generated with E-Houseation software. It may contain incorrect words, spelling, and punctuation that were not noted in review of the chart prior to signing ED Disposition - Plan for ED Patient: Chief Complaint: Lower Extremity Injury Referrals: Care Physician,No Primary [Primary Care Provider] - What to do if you have Problems For any increased pain, shortness of breath, bleeding, nausea or vomiting, chest pain, or any unexpected problems, contact your Primary Care Provider. Call [facility] ([phone]) or report to the closest Emergency Room. Call 911 if necessary. 05/30/18 8056 <Electronically signed by Keanu Markham MD> Date Keanu Markham MD Cosigner Signature (If Indicated): Date CC: No Primary Care Physician FEMUR MIN 2 VIEWS Observed: 05/30/2018 Status: F Source: [place] 10:37 PM [facility] REPOSITORY [facility] Imaging Services [address] [place] [address] Femur Min 2 Views MR#: [id number] Acct: [id number] Name: EARNEST KURTZ Rep #: [id number] : 1995 22 From: Jude Martinez MD PCP: Care Physician, No Primary Status: REG ER Study: Femur Min 2 Views Date of Exam: 05/30/18 Exam# [id number] Ordering Dr: Keanu Markham MD STUDY: X-RAY - LEFT FEMUR REASON FOR STUDY: Female, 22 years old. Left knee pain TECHNIQUE: Radiological exam, femur, minimum 2 views COMPARISON: None. FINDINGS: Old healed distal femur fracture. Normal visualized soft tissue structure. Side plate and screws transfix the distal femur. RAD/Femur Min 2 Views IMPRESSION: No acute disease. Status post remote ORIF healed distal femur fracture. Electronically Signed: Jude Martinez MD at 22:58 EDT , Service support , CC: No Primary Care Physician; Keanu Markham MD Transformer Builder: Signed KNEE 3 VIEWS Observed: 05/30/2018 Status: F Source: [place] 10:23 PM [facility] REPOSITORY [facility] Imaging Services [address] [place] [address] Knee 3 Views MR#: [id number] Acct: [id number] Name: EARNEST KURTZ EBONIE Rep #: [id number] : 1995 F From: Liv Villeda MD PCP: Care Physician, No Primary Status: DEP ER Study: Knee 3 Views Date of Exam: 05/30/18 Exam# [id number] Ordering Dr: Keanu Markham MD STUDY: X-RAY - LEFT KNEE REASON FOR EXAM: Female, 22 years old. Left knee pain TECHNIQUE: 3 view(s) of the knee. COMPARISON: None. FINDINGS: There is healed fracture in distal left femur. Hardware from internal fixation is still present at the lateral aspect of the distal femur. Normal visualized proximal tibia and fibula. Normal proximal tibiofibular articulation. Normal medial femorotibial compartment. Normal lateral femorotibial compartment. Normal patellofemoral articulation. The soft tissue structures are unremarkable. RAD/Knee 3 Views IMPRESSION: Normal x-ray examination of the knee. Electronically Signed: Liv Villeda MD at 6:00 EDT Tel , Service support , CC: No Primary Care Physician; Keanu Markham MD Transformer Builder: Signed URINALYSIS, COMPLETE Collected: 05/25/2018 Status: F Source: [place] 6:20 PM [facility] REPOSITORY Order Comment: COLOR OF URINE MAY AFFECT DIPSTICK RESULTS. How was Urine Obtained? BAR WAITER/WAITRESS TO SPECIFY TYPE CODE TESTS RESULT OUT OF RANGE REFERENCE UNITS LAB L400.3000 Yellow COLOR Normal Red LAB L400.3050 Clear Normal CLARITY Sl. Cloudy LAB L400.3200 Normal mg/dl Normal GLUCOSE, UR Normal LAB L400.3300 Negative mg/dL Normal BILIRUBIN URINE Negative LAB L400.3400 Negative mg/dl Normal KETONE UR Negative LAB L400.3465 1.002-1.030 Normal SP.GR. DIPSTX 1.010 LAB L400.3550 5.0 - 8.0 pH UR Normal 7.0 LAB L400.3600 Negative mg/dl High PROT 30 DIPSTX LAB L400.3700 Normal mg/dl Normal UROBILI Normal LAB L400.3750 Negative Normal NITRITE UR Negative LAB L400.3780 Negative /ul High OCCULT BLOOD-UR 250 LAB L400.3800 Negative /ul High LEUK ESTERASE 100 LAB L400.4050 0-5 /hpf WBC 0 Normal SEEN LAB L400.4100 0-5 /hpf > Normal RBC-UA 100 SEEN Result Comment: Microscopic field is filled. Other elements may be obscured. LAB L400.4150 5-10 /hpf Normal SQUAM EPI 0 SEEN LAB L400.4300 None Seen /hpf Normal BACTERIA 0 SEEN LAB L400.4350 <or=2+ /hpf Normal MUCUS, URINE 0 SEEN Performed By: #### L400.0001, M100.0650 #### [facility] [address] [place], [place], [address] Observed: 05/25/2018 Status: F Source: [place] CULTURE, URINE 6:20 PM [facility] REPOSITORY Urine Culture ORGANISM 1: Mixed Gram Positive Organisms Walsh Count 1000-10,000 MIX CULTURE Mixed contaminants. Submit a new specimen if indicated. Performed By: #### L400.0001, M100.0650 #### [facility] [address] [facility] [place], [address] CBC-COMPLETE BLOOD CNT Collected: 05/23/2018 Status: F Source: [place] NO DIFF 8:45 AM [facility] REPOSITORY TYPE CODE TESTS RESULT OUT OF RANGE REFERENCE UNITS LAB L100.1000 4.4-11.0 K/mm3 High WBC 17.2 LAB L100.1200 4.2-5.4 M/mm3 Low RBC 3.98 LAB L100.1300 12.0-15.0 g/dl Low HGB 11.8 LAB L100.1400 37-47 % Low HCT 35.9 LAB L100.1500 81-99 fL Normal MCV 90.2 LAB L100.1600 27.0-32.0 pg Normal MCH 29.6 LAB L100.1700 32-36 g/gl Normal MCHC 32.9 LAB L100.1810 11.6-14.6 % Normal RDW CV 13.0 LAB L100.1820 35.1-43.9 fl Normal RDW SD 42.2 LAB L100.1900 150-450 K/mm3 Normal PLT 301 LAB L100.2000 6.2-12.0 fl Normal MPV 10.1 Performed By: #### L100.0500 #### [facility] [address] [place], [place], [address] GLUCOSE CHALLENGE GEST Collected: 05/23/2018 Status: F Source: [place] 1H 50G 8:45 AM [facility] REPOSITORY TYPE CODE TESTS RESULT OUT OF RANGE REFERENCE UNITS LAB L501.0250 70-140 mg/dL Normal GLU GEST 96 50g 1H Performed By: #### L501.0250 #### [facility] [address] [place], [address] CYSTIC FIBROSIS PROF Collected: 03/06/2018 Status: F Source: [place] 9:21 AM [facility] REPOSITORY Order Comment: Is Patient ? Y Enter Completed Weeks of Gestation: 16.6 Patient's Weight (LBS.): 154 Race: / White Number of Fetuses: 1 Is Patient Insulin-Dependent Diabetic?: N TYPE CODE TESTS RESULT OUT OF RANGE REFERENCE UNITS LAB L3280.0200 . Normal CF, SCREEN Comment: Result Comment: RESULTS: Negative for 32 mutations analyzed INTERPRETATION: This individual is negative for the mutations analyzed. This negative result may need further interpretation depending on the clinical indication. This result reduces but does not eliminate the risk to be a CF carrier. COMMENTS: The detection rate varies with ethnicity and is listed below. The presence of an undetected mutation in the CF gene cannot be ruled out. In the absence of family history, the remaining risk that a person with a negative result could have at least one CF mutation is listed in the table. If there is a family history of CF, these risk figures do not apply. As detailed information regarding this individual's family history would permit a more accurate assessment of this individual's risk to be a carrier of cystic fibrosis, please contact [facility] [employer] [facility] at for a revised report. Mutation Detection Detection rates are based on mutation Rates among Ethnic frequencies in patients affected with Groups cystic fibrosis. Among individuals with an atypical or mild presentation (e.g. congenital absence of the vas deferens, pancreatitis) detection rates may vary from those provided here: Carrier risk reduction when no family history Detection Ethnicity Rate Ashkenazi 09/02 to 97% Caodaism 09/01 to 90% (non-) -Djiboutian to 69% 46 to 73% to 55% This interpretation is based on the clinical and family relationship information provided and the current understanding of the molecular genetics of this condition. MUTATIONS ANALYZED: G85E V520F O4511R 2183AA to G R117H G542X N3048T 2184delA R334W S549N 394delTT 2789+5G to A R347H S549R 621+1G to T 3120+1G to A R347P G551D 711+1G to T 3659delC A455E R553X 1078delT 3849+10kbC to T UluvcW982 R560T 1717-1G to A 3876delA KngarE821 H0774A 1898+1G to A 3905insT METHODS/LIMITATIONS: DNA is isolated from the sample and tested for the 32 CF mutations on the [employer] Array Platform (ArtBinder). Regions of the CFTR gene are amplified enzymatically and subjected to a solution-phase multiplex allele-specific primer extension with subsequent hybridization to a bead array and fluorescence detection. Polymorphisms F508C, I506V and I507V are included in this panel to rule out false positive [id number] homozygotes. Reflex testing of 5T is included in the panel for R117H interpretation. False positive or negative results may occur for reasons that include genetic variants, blood transfusions, bone marrow transplantation, erroneous representation of family relationships or contamination of a sample with maternal cells. REFERENCES: 1. Updates on Carrier Screening for Cystic Fibrosis. (2011) Am J Ob Gynecol 117(4):9235-2704 2. Gentry, et al. (2004) Amanda Med 6:387-91 3. Stevo, et al. (2002) Amanda Med 4:379-391 4. Preconception and carrier screening for cystic fibrosis: (2001)ACOG.ACMG publication Results Released By: Brendan Lyon, Ph.D., Pre Assembly Wirer Released By: Brendan Lyon, Ph.D., Director LAB L3280.0400 . Normal COMMENT Comment Result Comment: The assay provides information intended to be used for carrier screening in adults of reproductive age, as an aid in screening, and as a confirmatory test for another medically established diagnosis in newborns and children. The test is not indicated for use in diagnostic testing, pre-implantation screening, or for any stand-alone diagnostic purposes without confirmation by another medically established diagnostic product or procedure. Performed at: [facility] [address] [id number] Photography Instructor: Jihan Lewis MD, Phone: [phone] Performed By: #### L3280.0100, L3290.0100 #### [facility] (refer to report for specific site) refer to report for address and phone number AFP TETRA QUAD Collected: 03/06/2018 Status: F Source: [place] SCREEN 9:21 AM [facility] REPOSITORY Order Comment: Is Patient ? Y Enter Completed Weeks of Gestation: 16.6 Patient's Weight (LBS.): 154 Race: / White Number of Fetuses: 1 Is Patient Insulin-Dependent Diabetic?: N TYPE CODE TESTS RESULT OUT OF REFERENCE UNITS RANGE LAB L3290.110 . 0 TEST Normal RESULTS: *Screen Negative* LAB L3290.120 . WEEKS 0 16.9 Normal GESTATIONAL AGE LAB L3290.130 . 0 GEST AGE Normal FROM Ultrasound Result Comment: 16.9 on 03/06/2018 LAB L3290.1400 . [age] MATRNL AGE @STEPHEN 23.7 Normal LAB L3290.1500 . RACE Normal LAB L3290.1600 . lbs WEIGHT 154 Normal LAB L3290.1700 . INS DEP DIABETE No Normal LAB L3290.1800 . MULT GESTATION No Normal LAB L3290.1900 . ng/mL AFP VALUE-EIA 35.2 Normal LAB L3290.2000 . AFP MOM VALUE 0.97 Normal LAB L3290.2100 . mIU/mL HCG VALUE 15441 Normal LAB L3290.2200 . HCG MOM 0.76 Normal LAB L3290.2300 . ng/mL UE3 VALUE 0.96 Normal LAB L3290.2400 . UE3 MOM 1.00 Normal LAB L3290.2500 . pg/mL JACIEL VALUE-EIA Normal 253.95 LAB L3290.2600 . JACIEL MOM VALUE 1.55 Normal LAB L3290.2700 . OSBR RISK 96367 Normal LAB L3290.2800 . DSR 2ND TRIMEST 3759 Normal LAB L3290.2900 . DSR (BY AGE) 1081 Normal LAB L3290.3100 . T18 RISK Not Normal increased LAB L3290.3200 . T18 (BY AGE) Normal 1:4212 LAB L3290.3300 . INTERPRETATION Normal Comment Result Comment: Interpretation: Screen Negative This result is screen negative for OSB, Down Syndrome and Trisomy 18. The AFP MoM and patient specific risks calculated are based on the gestational age and the clinical information provided. This test can identify up to 80% of open neural tube defects. Closed neural tube defects and some open defects may not be detected by this test. The combination of maternal age, AFP, hCG, uE3, and JACIEL identifies 75-80% of Down Syndrome. The combination of maternal age, AFP, hCG and uE3 identifies 60% of Trisomy 18 pregnancies. The [place] [employer] recommends amniocentesis be offered to women age 35 and older. Recalculations are not recommended when gestational dating by LMP and ultrasound are within 10 days. Performed By: #### L3280.0100, L3290.0100 #### [facility] (refer to report for specific site) refer to report for address and phone number DOWNTIME REPORT Observed: 01/26/2018 Status: F Source: [place] 1:11 PM [facility] Medical Records Department [address] [place] [address] Downtime Report MR#: [id number] Acct: [id number] Name: EARNEST KURTZ Rep #: [id number] : 1995 22 From: Guicho Watson PCP: Care Physician, No Primary Status: REG CLI This patient was seen during an EMR downtime January 09, 2018 - January 16, 2018. This patient may have a combination of paper and electronic documentation or all paper documentation. All documentation is viewable within the e-chart portion of [employer] for each patient visit. EMERGENCY DEPARTMENT Observed: 01/19/2018 Status: F Source: [place] SUMMARY 12:27 AM [facility] Medical Records Department [address] [place] [address] Emergency Department Summary 01/18/18 2237 MR#: [id number] Acct: [id number] Name: EARNEST KURTZ Rep #: [id number] : 1995 22 From: Joselyn Romo MD PCP: Care Physician, No Primary Status: DEP ER - ER Visit Summary Date of Service: 01/18/18 Chief Complaint: Abdominal pain, History of Present Illness: The patient is a 22 F with sudden onset of left-sided abdominal pain at work tonight. 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 She denies that she was lifting or doing anything out of the ordinary. She denies nausea or vomiting. She has had no dysuria. She is currently 10 weeks . She has had no spotting or bleeding. She has already had an ultrasound which confirmed an intrauterine . Physical Examination: Vital signs are unremarkable. Patient sitting upright in bed no acute distress. Head neck examination is normal. Heart is regular rate and rhythm. Lung sounds are clear. Abdomen is soft with left-sided abdominal tenderness along the oblique muscles. There is no guarding or rebound. Active bowel sounds are noted throughout. She has no CVA tenderness. Test Results: CBC and chemistry studies are significantly for white count of 13.5 with normal differential. Urinalysis is normal. Emergency Department Course and Treatment: Patient was given IV fluids along with Tylenol. On repeat evaluation she is resting comfortably. I expressed to her that I believe this is all wall pain. She has already had an ultrasound which confirmed an intrauterine . I do not feel repeat imaging is needed at this time. Treatment Plan: [] Disposition: Discharge Impression: Abdominal wall pain This note was generated with [email or web address] dictation software. It may contain incorrect words, spelling, and punctuation that were not noted in review of the chart prior to signing ED Disposition - Plan for ED Patient: Chief Complaint: Abd Pain Referrals: Care Physician,No Primary [Primary Care Provider] - What to do if you have Problems For any increased pain, shortness of breath, bleeding, nausea or vomiting, chest pain, or any unexpected problems, contact your Primary Care Provider. Call [facility] ([phone]) or report to the closest Emergency Room. Call 911 if necessary. 01/19/18 0027 <Electronically signed by Joselyn Romo MD> Date Joselyn Romo MD Cosigner Signature (If Indicated): Date CC: No Primary Care Physician DISCHARGE INSTRUCTION Observed: 01/18/2018 Status: F Source: [place] 10:40 PM [facility] REPOSITORY [facility] Medical Records Department [address] [place] [address] Discharge Instruction 01/18/182238 MR#: [id number] Acct: [id number] Name: EARNEST KURTZ Rep #: [id number] : 1995 22 From: Joselyn Romo MD PCP: Care Physician, No Primary Status: REG ER ED Disposition - Plan for ED Patient: Disposition: Home or Assisted Living Chief Complaint: Abd Pain Instructions: ED Strain Abdominal Muscle Referrals: Eleuterio Watt MD [STAFF PHYSICIAN] - As Needed What to do if you have Problems For any increased pain, shortness of breath, bleeding, nausea or vomiting, chest pain, or any unexpected problems, contact your Primary Care Provider. Call [facility] ([phone]) or report to the closest Emergency Room. Call 911 if necessary. 01/18/182239 <Electronically signed by Joselyn Romo MD> Date Joselyn Romo MD Cosigner Signature (If Indicated): Date CC: No Primary Care Physician URINALYSIS, COMPLETE Collected: 01/18/2018 Status: F Source: [place] 9:20 PM [facility] REPOSITORY Order Comment: How was Urine Obtained? CLEAN CATCH TYPE CODE TESTS RESULT OUT OF RANGE REFERENCE UNITS LAB L400.3000 Yellow COLOR Normal Yellow LAB L400.3050 Clear Normal CLARITY Clear LAB L400.3200 Normal mg/dl Normal GLUCOSE, UR Normal LAB L400.3300 Negative mg/dL Normal BILIRUBIN URINE Negative LAB L400.3400 Negative mg/dl Normal KETONE UR Negative LAB L400.3465 1.002-1.030 Normal SP.GR. DIPSTX 1.020 LAB L400.3550 5.0 - 8.0 pH UR Normal 6.0 LAB L400.3600 Negative mg/dl PROT Normal DIPSTX Negative LAB L400.3700 Normal mg/dl Normal UROBILI Normal LAB L400.3750 Negative Normal NITRITE UR Negative LAB L400.3780 Negative /ul Normal OCCULT BLOOD-UR Negative LAB L400.3800 Negative /ul LEUK Normal ESTERASE Negative LAB L400.4050 0-5 /hpf WBC 0 Normal SEEN LAB L400.4100 0-5 /hpf 0 Normal RBC-UA SEEN LAB L400.4150 5-10 /hpf SQUAM 0 Normal EPI SEEN LAB L400.4300 None Seen /hpf 0 Normal BACTERIA SEEN LAB L400.4350 <or=2+ /hpf 0 Normal MUCUS, URINE SEEN Performed By: #### L400.0001 #### [facility] [address] [place], [address] ,SERUM,HCG QUALI. Collected: Status: F Source: [place] 01/18/2018 8:15 PM [facility] REPOSITORY Order Comment: RESULTS CALLED TO [place] [id number] 01/18/182055 Trinidad Roman. REPORT READ BACK BY SAME. TYPE CODE TESTS RESULT OUT OF REFERENCE UNITS RANGE LAB L700.7000 0-9 Nonpreg Negative High HCGSQUAL POSITIVE Result Comment: TEST is *POSITIVE* LAB L700.6700 =>Qualitative mIU/mL Normal HCG Qual triggr 89202 Performed By: #### L700.6800 #### [facility] [address] [facility] [place], [address] CBC W/DIFF, AUTOMATED Collected: 01/18/2018 Status: F Source: [place] 8:15 PM [facility] REPOSITORY TYPE CODE TESTS RESULT OUT OF RANGE REFERENCE UNITS LAB L100.1000 4.4-11.0 K/mm3 High WBC 13.5 LAB L100.1200 4.2-5.4 M/mm3 Normal RBC 4.52 LAB L100.1300 12.0-15.0 g/dl Normal HGB 13.1 LAB L100.1400 37-47 % Normal HCT 38.4 LAB L100.1500 81-99 fL Normal MCV 85.0 LAB L100.1600 27.0-32.0 pg Normal MCH 29.0 LAB L100.1700 32-36 g/gl Normal MCHC 34.1 LAB L100.1810 11.6-14.6 % Normal RDW CV 13.3 LAB L100.1820 35.1-43.9 fl Normal RDW SD 41.1 LAB L100.1900 150-450 K/mm3 Normal PLT 289 LAB L100.2000 6.2-12.0 fl Normal MPV 10.1 LAB L100.2100 47-70 % Normal NEUT% 69.6 LAB L100.2200 19-41 % Low LY% 18.1 LAB L100.2300 0-10 % High MONO% 11.1 LAB L100.2400 0-5 % Normal EO% 0.9 LAB L100.2500 0-1 % Normal BASO% 0.1 LAB L100.2550 0.0-0.9 % Normal IM GRAN % 0.200 Result Comment: IG% - Immature Granulocytes (promyelocytes, myelocytes and metamyelocytes) > 1% indicates that a LEFT SHIFT is Present. LAB L100.2620 2.0-7.7 X10 3/uL High Absolute Neut 9.4 LAB L100.2720 0.83-4.51 X10 3/ul Normal Absolute Lymph 2.44 Performed By: #### L100.0100 #### [facility] [address] [place], [address] BASIC METABOLIC Collected: 01/18/2018 Status: F Source: [place] PROFILE ([facility]) 8:15 PM [facility] REPOSITORY TYPE CODE TESTS RESULT OUT OF RANGE REFERENCE UNITS LAB L501.0100 74-106 mg/dL Normal GLU 101 Result Comment: Fasting Glucose result from 100 to 125 mg/dL suggests IMPAIRED HOMEOSTASIS per A.D.A. criteria. Please note revised GLUCOSE reference range effective 2017. LAB L501.1000 7-18 mg/dL Normal BUN 8 LAB L501.1100 0.55-1.02 mg/dL Normal CREAT,SERUM 0.70 Result Comment: The validity of the calculated GFR AND GFRAA in patients over 70 years has not been determined. Clinical correlation is essential. LAB L501.1110 >60 mL/min Normal EST GFR 111 Result Comment: Non- GFR Calc LAB L501.1115 >60 mL/min Normal EST GFR - AA 134 Result Comment: GFR Calc LAB L501.1255 ml/min Normal Estimated CRCL 107.93 LAB L501.1300 10-20 RATIO BUN/CRE Normal 11.5 LAB L501.2200 8.5-10 mg/dL .1 CA Normal 8.9 LAB L501.5300 136-14 mmol/L 5 NA Normal 136 LAB L501.5600 3.5-5. mmol/L 1 K Normal 3.5 LAB L501.5900 98-107 mmol/L CL Normal 105 LAB L501.6100 21.0-3 mmol/L 2.0 CO2 Normal 21.0 LAB L501.6200 5-15 GAP Normal 10 Performed By: #### L500.2500 #### [facility] [address] [place], [address] T AND S-NO Collected: 01/13/2018 Status: F Source: [place] LAL W/PNP 11:03 AM [facility] REPOSITORY Order Comment: Reason for Type AND Screen/Red Cells: Surgery? N TYPE CODE TESTS RESULT OUT OF RANGE REFERENCE UNITS LAB B10.0800 A Normal BLOOD POSITIVE TYPE GEL LAB B100.4050 Normal Ab SCREEN NEGATIVE GEL Performed By: #### B100.7550 #### [facility] [address] [place], [address] URINE DRUG SCREEN Collected: 01/13/2018 Status: P Source: [place] ([place]) 11:03 AM [facility] REPOSITORY Order Comment: List of Drugs Taken or Suspected? UNK TYPE CODE TESTS RESULT OUT OF RANGE REFERENCE UNITS LAB L505.0075 TO BE Normal CONFIRMED Result Comment: CONFIRMATORY TESTING FOR ALL POSITIVE URINE DRUG SCREEN RESULTS WILL ONLY BE SENT OUT UPON PHYSICIAN ORDER. [facility] Urine Drug Screen methods provide only preliminary analytical test results. A more specific alternate chemical method must be used in order to obtain a confirmed analytical result. Gas chromatography/mass spectrometery (GC/MS) is the preferred confirmatory method. Clinical consideration and professional judgement should be applied to any drug of abuse test result, particularly when preliminary positive results are used. URINE TCA TESTING MUST BE ORDERED SEPARATELY. USE TEST MNEMONIC: [facility] Performed By: #### L505.5000, L505.6240 #### [facility] [address] [place], [address] NICOTINE URINE DRUG Collected: 01/13/2018 Status: P Source: [place] SCREEN 11:03 AM [facility] REPOSITORY Order Comment: List of Drugs Taken or Suspected? UNK TYPE CODE TESTS RESULT OUT OF RANGE REFERENCE UNITS LAB L505.6250 TO BE Normal CONFIRMED Result Comment: CONFIRMATORY TESTING FOR ALL POSITIVE URINE DRUG SCREEN RESULTS WILL ONLY BE SENT OUT UPON PHYSICIAN ORDER. The results of Urine Drug Screen methods provide only preliminary analytical test results. A more specific alternate chemical method must be used in order to obtain a confirmed analytical result. Gas chromatography/mass spectrometery (GC/MS) is the preferred confirmatory method. Clinical consideration and professional judgement should be applied to any drug of abuse test result, particularly when preliminary positive results are used. LAB L505.6270 <200 ng/mL Normal COT DRG SCREEN Result Comment: Cotinine is the first-stage metabolite of Nicotine. Performed By: #### L505.5000, L505.6240 #### [facility] [address] [place], [place], [address] RUBELLA IGG Collected: 01/13/2018 Status: F Source: [place] 11:03 [facility] REPOSITORY TYPE CODE TESTS RESULT OUT OF RANGE REFERENCE UNITS LAB L509.4000 IU/mL Normal Rubella IgG 110.8 Result Comment: Antibody results Interpretation of Immune Status < 5 IU/ml Presumed Non-immune 5 - < 10 IU/ml Equivocal > or = 10 IU/ml Presumed Immune Performed By: #### L509.4000, L3890.6005 #### [facility] [address] [place], [place], [address] HIV - [facility] Collected: 01/13/2018 Status: F Source: [place] 11:03 AM [facility] REPOSITORY TYPE CODE TESTS RESULT OUT OF RANGE REFERENCE UNITS LAB L3890.6005 Nonreactive Normal HIV - [facility] Non-Reactive Performed By: #### L509.4000, L3890.6005 #### [facility] [address] [place], [address] CBC-COMPLETE BLOOD CNT Collected: 01/13/2018 Status: F Source: [place]RIEL NO DIFF 11:03 AM [facility] REPOSITORY Order Comment: RESULT(S) PREVIOUSLY REPORTED ON MANUAL REQUISITION DURING DOWNTIME. TYPE CODE TESTS RESULT OUT OF RANGE REFERENCE UNITS LAB L100.1000 4.4-11.0 K/mm3 Normal WBC 10.2 LAB L100.1200 4.2-5.4 M/mm3 Normal RBC 4.81 LAB L100.1300 12.0-15.0 g/dl Normal HGB 14.3 LAB L100.1400 37-47 % Normal HCT 41.0 LAB L100.1500 81-99 fL Normal MCV 85.2 LAB L100.1600 27.0-32.0 pg Normal MCH 29.7 LAB L100.1700 32-36 g/gl Normal MCHC 34.9 LAB L100.1810 11.6-14.6 % Normal RDW CV 13.3 LAB L100.1820 35.1-43.9 fl Normal RDW SD 41.0 LAB L100.1900 150-450 K/mm3 Normal PLT 317 LAB L100.2000 6.2-12.0 fl Normal MPV 10.8 Performed By: #### L100.0500 #### [facility] [address], [address] THYROID STIM HORMONE Collected: 01/13/2018 Status: F Source: [place] (TSH) 11:03 AM [facility] REPOSITORY Order Comment: RESULT(S) PREVIOUSLY REPORTED ON MANUAL REQUISITION DURING DOWNTIME. TYPE CODE TESTS RESULT OUT OF RANGE REFERENCE UNITS LAB L501.9520 0.358-3.74 uIU/mL Normal TSH 2.36 Performed By: #### L501.9520 #### [facility] [address] [place], [address] URINALYSIS, ROUTINE Collected: 01/13/2018 Status: C Source: [place] (DIPSTICK) 11:03 AM [facility] REPOSITORY Order Comment: RESULT(S) PREVIOUSLY REPORTED ON MANUAL REQUISITION DURING DOWNTIME. How was Urine Obtained? Urine, Random TYPE CODE TESTS RESULT OUT OF RANGE REFERENCE UNITS LAB L400.3000 Yellow COLOR Normal Straw LAB L400.3050 Clear Normal CLARITY Clear LAB L400.3200 Normal mg/dl Normal GLUCOSE, UR Normal LAB L400.3300 Negative mg/dL Normal BILIRUBIN URINE Negative LAB L400.3400 Negative mg/dl Normal KETONE UR Negative LAB L400.3465 1.002-1.030 Normal SP.GR. DIPSTX 1.005 LAB L400.3550 5.0 - 8.0 pH UR Normal 7.0 LAB L400.3600 Negative mg/dl PROT Normal DIPSTX Negative LAB L400.3700 Normal mg/dl Normal UROBILI Normal LAB L400.3750 Negative Normal NITRITE UR Negative LAB L400.3780 Negative /ul Normal OCCULT BLOOD-UR Negative LAB L400.3800 Negative /ul LEUK Normal ESTERASE Negative Performed By: #### L400.2010 #### [facility] [address] [place], [address] HEPATITIS B SURFACE Collected: 01/13/2018 Status: F [facility] AM [facility] REPOSITORY TYPE CODE TESTS RESULT OUT OF RANGE REFERENCE UNITS LAB L3100.0400 Normal HB SURF AG Result Comment: TEST RESULT LIMITS HBsAg Screen Negative Negative TESTING PERFORMED AT [facility]. ORIGINAL REPORT ON FILE IN LAB CONTAINS ADDITIONAL TEST SITE INFORMATION. Performed By: #### L3100.0390, L3100.0625 #### [facility] (refer to report for specific site) refer to report for address and phone number HEPATITIS C ANTIBODIES Collected: 01/13/2018 Status: F Source: [place] 11:03 [facility] REPOSITORY TYPE CODE TESTS RESULT OUT OF RANGE REFERENCE UNITS LAB L3100.0650 Normal HEP C AB Result Comment: TEST RESULT LIMITS HCV Antibody Hep C Virus Ab <0.1 s/co ratio 0.0 - 0.9 Negative: < 0.8 Indeterminate: 0.8 - 0.9 Positive: > 0.9 The CDC recommends that a positive HCV antibody result be followed up with a HCV Nucleic Acid Amplification test (453008). TESTING PERFORMED AT [facility]. ORIGINAL REPORT ON FILE IN LAB CONTAINS ADDITIONAL TEST SITE INFORMATION. Performed By: #### L3100.0390, L3100.0625 #### [facility] (refer to report for specific site) refer to report for address and phone number RPR Collected: 01/13/2018 Status: F Source: [place] 11:03 AM [facility] REPOSITORY TYPE CODE TESTS RESULT OUT OF REFERENCE UNITS RANGE LAB L700.5100 NONREACTIVE Normal RPR NONREACTIVE Performed By: #### L700.5100 #### [facility] [address] [place], [address] CT/NG [facility] BY PCR Collected: 12/27/2017 Status: F Source: [place] 11:25 AM [facility] REPOSITORY TYPE CODE TESTS RESULT OUT OF RANGE REFERENCE UNITS LAB L8200.2100 Negative Normal Chlam Negative Trac PCR LAB L8200.2200 Negative Normal NG by Negative PCR Performed By: #### L8200.2000 #### [facility] [address] [place], [address] PAP I-G W/RFX HRHPV Collected: 12/27/2017 Status: F Source: [place] 11:25 AM [facility] REPOSITORY Order Comment: CYTOLOGY INFORMATION: - CLINICAL INFORMATION: - DATE LMP/MENOPAUSE: LMP 11/08/17 - COLLECTION VIAL: Thin Prep Vial - STEEL MANAGER SOURCE: CERVICAL/ENDOCERVICAL - COLLECTION TECHNIQUE: BRUSH/SPATULA Specimen Comment: [id number] Specimen Comment: No. of containers..01 ThinPrep Vial TYPE CODE TESTS RESULT OUT OF RANGE REFERENCE UNITS LAB L7400.0800 . Normal DIAGN Comment Result Comment: NEGATIVE FOR INTRAEPITHELIAL LESION AND MALIGNANCY. PREDOMINANCE OF COCCOBACILLI CONSISTENT WITH SHIFT IN VAGINAL MARGARITA IS PRESENT. LAB L7400.0900 . Normal ADEQ Comment Result Comment: Satisfactory for evaluation. Endocervical and/or squamous metaplastic cells (endocervical component) are present. LAB L7400.1400 . Normal PERFORM Comment Result Comment: Bhavya Farfan, Travel Physical Therapist (ASCP) LAB L7400.1720 . Normal Path prov. Comment ICD9 Result Comment: R87.5 LAB L7400.2575 . Normal TEST METHOD Comment Result Comment: This liquid based ThinPrep(R) pap test was screened with the use of an image guided system. LAB L7400.2600 . Normal . COMM LAB L7400.2700 . Normal PAPSMR Comment Result Comment: The Pap smear is a screening test designed to aid in the detection of premalignant and malignant conditions of the uterine cervix. It is not a diagnostic procedure and should not be used as the sole means of detecting cervical cancer. Both false-positive and false-negative reports do occur. LAB L7400.2800 . Normal HPV RFLX Comment Result Comment: The HPV DNA reflex criteria were not met with this specimen result therefore, no HPV testing was performed. Performed at: - [facility] [id number] Photography Instructor: Sydnie Aguila MD, Phone: [phone] Performed By: #### L7400.0350 #### [facility] (refer to report for specific site) refer to report for address and phone number EMERGENCY DEPARTMENT Observed: 10/12/2017 Status: F Source: [place] SUMMARY 8:15 AM [facility] REPOSITORY [facility] Medical Records Department [address] [place] [address] Emergency Department Summary 10/12/17 0809 MR#: [id number] Acct: [id number] Name: EARNEST KURTZ Rep #: [id number] : 1995 21 From: Edis Phan MD PCP: Care Physician, No Primary Status: REG ER - ER Visit Summary Date of Service: 10/12/17 Chief Complaint: Subjective fever, headache, myalgias and nonproductive cough History of Present Illness: The patient is a 21 F who presents with flulike symptoms that started yesterday. Multiple family members are presently in the ER with similar symptoms. She complained of subjective fevers myalgias yesterday. She states she has a headache and her headache is worse with coughing. Her cough is nonproductive. She does report nasal congestion and mild postnasal drainage. She denies ear pain. She denies any GI or symptoms. She denies rash. Denies swelling of her joints. She is a smoker. Please read written note for complete detail Physical Examination: Patient's vitals remarkable for heart rate of 111. Head is atraumatic normocephalic. Pupils are equal round reactive. Extraocular muscles are intact. TMs are pearly white with landmarks noted. Nares patent with clear drainage. Posterior pharynx without erythema or exudate. Uvula is midline. There is no dysphonia or dysphasia. Trachea is midline. There is no stridor with auscultation of the neck. Neck is supple. Heart is rapid and regular without murmur, gallop or rub. S1 and S2 are normal. Lungs are clear to auscultation with good movement of air bilaterally. No rash or skin lesions noted. Neuro exam is nonfocal. Test Results: None were obtained Emergency Department Course and Treatment: Since patient symptoms started less than 24 hours ago and she wishes not to miss work will prescribe Tamiflu. Treatment Plan: Prescription for Tamiflu and work excuse for today Disposition: Discharged to home with family members Impression: Influenza This note was generated with [email or web address] dictation software. It may contain incorrect words, spelling, and punctuation that were not noted in review of the chart prior to signing ED Disposition - Plan for ED Patient: Disposition: Home or Assisted Living Chief Complaint: Cold Sx Instructions: ED Flu Prescriptions: Oseltamivir Phosphate [Tamiflu] 75 mg PO BID #10 cap Referrals: Care Physician,No Primary [Primary Care Provider] - Additional Instructions: Recommend you contacting [place], your insurance carrier, for referral to new physician since Dr. Flores and is no longer in the area. It is in your best interest to stop smoking. Because you smoke you may call for 2-4 weeks. Your prescription was electronically transmitted to [email or web address] What to do if you have Problems For any increased pain, shortness of breath, bleeding, nausea or vomiting, chest pain, or any unexpected problems, contact your Primary Care Provider. Call [facility] ([phone]) or report to the closest Emergency Room. Call 911 if necessary. 10/12/17 0815 <Electronically signed by Edis Phan MD> Date Edis Phan MD Cosigner Signature (If Indicated): Date CC: No Primary Care Physician ALLERGIES ALLERGIES DATE TYPE / CODE NAME / CODE REACTION SEVERITY SOURCE 07/30/2018 Drug No Known Unknown [facility] Allergy/4160 Allergies/F00 [facility] [address](SNOMED 4478729(RXNOR Repository CT) M) ENCOUNTERS ENCOUNTERS ADMIT/DISCHARGE ACCOUNT ADMITTING ENCOUNTER LOCATION SOURCE NUMBER CLASS 08/19/2018/ [id number] Eleuterio Watt Inpatient Adriel [place] 9 7 Encounter [facility] ing:WPRoom: Repository VG701Akm: 1 07/30/2018/ [id number] Ambulatory [place] 8 2 [facility] ing:WPOUTRoom Repository : [id number] 07/18/2018 [id number] Ambulatory [place] 0 [facility] ing:LABSPEC Repository 05/30/2018/ [id number] Emergency [place] 8 7 [facility] ing:ED Repository 05/25/2018/ [id number] Ambulatory [place] Adriel 8 5 [facility] ing:WPOUTRoom Repository : WP013 05/23/2018 [id number] Ambulatory [place]riel [place] 8 [facility] ing:WOBLAB Repository 03/06/2018 [id number] Ambulatory [place]riel [place] 0 [facility] ing:WOBLAB Repository 01/18/2018/ [id number] Emergency [place]riel [place] 8 2 [facility] ing:ED Repository 01/13/2018 [id number] Ambulatory [place]riel [place] 8 [facility] ing:WOBLAB Repository 12/27/2017 [id number] Ambulatory [place]riel [place] 9 [facility] ing:LABSPEC Repository 10/12/2017/ [id number] Emergency [place]riel 8 1 [facility] ing:ED Repository PAYERS PAYERS ENCOUNTER GUARANTOR PAYER SUBSCRIBER SOURCE 08/19/2018 [facility] EARNEST Morel [id number] Insurance:PARAMOUNT BAKERDOB: [facility] [id number] Number: Repository [id number]: 330 [id number] [phone] () Date:7691-85-07JW [address] [address]CM: 08/19/2018 Secondary NOT GIVENUNK Adriel Insurance:SELF PAY [facility] Number: Effective Repository Date:2018-07-19 07/30/2018 [facility] EARNEST Morel [id number] Insurance:PARAMOUNT BAKERDOB: [facility] [place] Number: Repository [address]Qli: 330 [id number] [phone] () Date:4381-46-95JE [address] [address]PL: 07/30/2018 Secondary NOT GIVENUNK [place] Insurance:SELF PAY [facility] Number: Effective Repository Date:2018-07-30 07/18/2018 [facility] EARNSET Morel [id number] Insurance:PARAMOUNT BAKERDOB: [facility] [id number] Number: Repository [phone]: 330 [id number] [phone] () Date:[id number] [address]AX: 07/18/2018 Secondary NOT GIVENUNK [place] Insurance:SELF PAY [facility] Number: Effective Repository Date:2018-07-18 05/30/2018 [facility] [id number] Insurance:PARAMOUNT BAKERDOB: [facility] [id number] Number: Repository [phone]: 330 [id number] [phone] () Date:8727-65-63IJ [address] [address]TP: 05/30/2018 Secondary NOT GIVENUNK Adriel Insurance:SELF PAY [facility] Number: Effective Repository Date:2018-05-30 05/25/2018 [facility] [id number] Insurance:PARAMOUNT BAKERDOB: [facility] [id number] Number: Repository [phone]: 330 [id number] [phone] (HP) Date:8068-28-36UN [address] [address]OS: 05/25/2018 Secondary NOT GIVENUNK Adriel Insurance:SELF PAY [facility] Number: Effective Repository Date:2018-05-25 05/23/2018 [facility] [id number] Insurance:PARAMOUNT BAKERDOB: [facility] [id number] Number: Repository [phone]: (330 [id number] [phone] (HP) Date:7064-88-49EH [address] [address]QL: 05/23/2018 Secondary NOT GIVENUNK [place] Insurance:SELF PAY [facility] Number: Effective Repository Date:2018-05-23 03/06/2018 [facility] [id number] Insurance:PARAMOUNT BAKERDOB: [facility] [id number] Number: Repository [id number]: (330) [id number] [phone] () Date:8536-70-26QE [address] [place] [address]MP: 03/06/2018 Secondary NOT GIVENUNK Adriel Insurance:SELF PAY [facility] Number: Effective Repository Date:2018-03-06 01/18/2018 [facility] EARNEST [id number] Insurance:PARAMOUNT BAKERDOB: [facility] [id number] Number: Repository [address]Jye: 330 [id number] [phone] () Date:7072-30-30RX [address] [place] [address]BQ: 01/18/2018 Secondary NOT GIVENUNK Adriel Insurance:SELF PAY [facility] Number: Effective Repository Date:2018-01-18 01/13/2018 [facility] EARNEST [id number] Insurance:PARAMOUNT BAKERDOB: Community [facility] [id number] Number: Repository [id number]: (330 [id number] [phone] () Date:5692-37-40PS [address] [address]LG: 01/13/2018 Secondary NOT GIVENUNK [place] Insurance:SELF PAY [facility] Number: Effective Repository Date:2018-01-13 12/27/2017 [facility] [id number] Insurance:PARAMOUNT BAKERDOB: [facility] [id number] [facility] [address]Ugp: (234) Number: Repository [phone] () [id number] Date:8838-03-91PJ [address] [address]ZM: 12/27/2017 Secondary NOT GIVENUNK [place] Insurance:SELF PAY [facility] Number: Effective Repository Date:2017-12-27 10/12/2017 EARNEST EBONIE Primary EARNEST [id number] Insurance:PARAMOUNT BAKERDOB: [facility] [id number] Hospital [address]Evs: 234) Number: Repository [phone] HP) [id number] Date:5766-18-68LW [address] [address]GN: 10/12/2017 Secondary NOT GIVENAHROON Morel Insurance:SELF PAY [facility] Number: Effective Repository Date:2017-10-12
== END ==
PROVIDERS: Visit Provider Obstetrics & Gynecology
DX: Z36.85 Encounter for antenatal screening for Streptococcus B (principal)
CPT/HCPCS: 87081

== ENCOUNTER 2018-07-30 13:10 | Outpatient (CLI) | payer MEDICAID, SELFPAY ==
[2018-07-30 13:41] VITALS: BMI 36.8
[2018-07-30 14:05] LABS: ROM Internal Control Test YES-OK TO RESULT pt. (Internal QC); ROM Patient Test Negative (Negative)
--- NOTE | 2018-08-14 08:07 | OB.TRI.NOTE ---
- Problem List (1) 37 weeks gestation of Status: Acute (2) False labor Status: Acute History of Present Illness Date of Service: 07/30/18 Was patient seen by the physician?: No Reason For Visit: RULE OUT SROM Final STEPHEN: 08/15/18 Gestational age: 37 weeks 5 days History of Present Illness: 22yo G1 @ 37 5/7wga with c/o leaking of fluid. Allergies No Known Allergies Allergy (Verified 07/30/18 13:42) Laboratory Studies: Laboratory Tests 07/30/18 Range/Units 13:35 Vag Amniotic Fld Detect Negative (Negative) Physical Exam Vitals: VSS NST - FHR Rate Baby A Baseline: 140 Variability:: Moderate Accelerations:: 15 x 15 Decelerations:: None NST Reactive:: Yes FHR Category:: Category I Uterine Activity:: 08/17 Impression/Plan 22yo g1 @ 37 5/7wga with false labor, Cat I FHR -ROM plus negative, d/c marce
== END 2018-07-30 14:30 | disposition home or self-care (01) ==
LOC: WPOUT 13:11 → WP 13:13
PROVIDERS: Visit Provider Obstetrics & Gynecology
DX: O47.1 False labor at or after 37 completed weeks of gestation (principal); Z3A.37 37 weeks gestation of pregnancy
CPT/HCPCS: 59025; 59050; 84112; 99218; G0378

== ENCOUNTER 2018-08-19 16:02 | Inpatient (IN) | payer MEDICAID, SELFPAY ==
[2018-08-19 16:30] VITALS: BMI 37.6
[2018-08-19] MEDS: Lactated Ringers 1,000 ML 50 ML IV ×2 (16:30→23:31)
[2018-08-19 16:58] LABS: Hematocrit 35.2 % (37-47); Hemoglobin 11.6 g/dl (12.0-15.0); Mean Corpuscular Hgb 27.8 pg (27.0-32.0); Mean Corpuscular Volume 84.2 fL (81-99); Mean Platelet Vol. 10.9 fl (6.2-12.0); Platelet Count 325 K/mm3 (150-450); RBC Distribution Width CV 15.2 % (11.6-14.6); Red Blood Count 4.18 M/mm3 (4.2-5.4); White Blood Count 16.2 K/mm3 (4.4-11.0)
[2018-08-19] MEDS: Oxytocin 30 units/NS 500 ml 30 UNITS/500 ML IV.SOLN IV (17:00)
[2018-08-19 17:02] LABS: Scan Indicated on CBC? Y/N NO
[2018-08-19] MEDS: fentaNYL-bupivacaine (epidural) 100 ML BAG EPIDURAL (23:41)
[2018-08-20] VITALS (19 sets, daily range): BP systolic 103–135; BP diastolic 61–87; PULSE 81–105; RESP 4–20; TEMP 36.1–36.9; O2SAT 97–100
[2018-08-20] MEDS: Lactated Ringers 1,000 ML 50 ML IV ×2 (02:30→06:46)
[2018-08-20] MEDS: Sodium Citrate/Citric Acid 30 ML UDC PO (09:46)
[2018-08-20] MEDS: Cefazolin 2 GM in 0.9% Normal Saline 100 ML IV (09:59)
--- NOTE | 2018-08-20 10:59 | PCM.OB.CSR ---
- Problem List (1) Arrest of dilation, delivered, current hospitalization Status: Acute Delivery Classification: HELADIO Final STEPHEN: 08/12/18 Final STEPHEN Source: US <20 weeks Gestational age: 41 Weeks and 1 Days Indications for : Failure to Progress, Failed Induction Description of Procedure: Failed to progress past 7 cm dilation with adequate contractions for over 6 hours with no cervical change during that time. Normal appearing uterus, ovaries, and fallopian tubes. Delivery of a live female with APGARs of 9/9. weight 8lb7oz. Normal apppearing placenta. Amniotic fluid clear. Amniotic Membrane Rupture Type: Artificial Amniotic Fluid Description: Clear Placenta Disposition: [facility] Drain: Mayes to straight drain Fluids Replaced: 1500cc LR Cord Entanglement: None Cord Vessel Description: 3 Vessels Esitmated Blood Loss (ml): 600 Infant Gender: Female (1 minute): 9 (5 minute): 9 Delayed cord clamping: Yes Pre-op Antibiotic Given: Ancef 2 grams IV x1 Pt instructed on risks of surgery: Bleeding, Infection, Need for Future C-Sections, Injury to surrounding structure(s) including bowel and bladder Complications: None - Admit VTE Documentation VTE Present on Admission: No VTE Mechan Device Prophylaxis: SCD's VTE Pharm Prophylaxis ordered?: No
--- NOTE | 2018-08-20 11:05 | OP.PCM_ITS ---
- Problem List (1) Arrest of dilation, delivered, current hospitalization Status: Acute Delivery Classification: HELADIO Final STEPHEN: 08/12/18 Final STEPHEN Source: US <20 weeks Gestational age: 41 Weeks and 1 Days Indications for : Failure to Progress, Failed Induction Description of Procedure: Failed to progress past 7 cm dilation with adequate contractions for over 6 hours with no cervical change during that time. Normal appearing uterus, ovaries, and fallopian tubes. Delivery of a live female with APGARs of 9/9. weight 8lb7oz. Normal apppearing placenta. Amniotic fluid clear. Amniotic Membrane Rupture Type: Artificial Amniotic Fluid Description: Clear Placenta Disposition: [facility] Drain: Mayes to straight drain Fluids Replaced: 1500cc LR Cord Entanglement: None Cord Vessel Description: 3 Vessels Esitmated Blood Loss (ml): 600 Infant Gender: Female (1 minute): 9 (5 minute): 9 Delayed cord clamping: Yes Pre-op Antibiotic Given: Ancef 2 grams IV x1 Pt instructed on risks of surgery: Bleeding, Infection, Need for Future C- Sections, Injury to surrounding structure(s) including bowel and bladder Complications: None - Admit VTE Documentation VTE Present on Admission: No VTE Mechan Device Prophylaxis: SCD's VTE Pharm Prophylaxis ordered?: No
--- NOTE | 2018-08-20 11:06 | PCM.OPRPT ---
Problem List (1) Arrest of dilation, delivered, current hospitalization Status: Acute Report of Operation Date of Procedure: 08/20/18 Pre-Operative Diagnosis: Arrest of Dilation, Failed post dates induction Post-Operative Diagnosis: Same Surgery/Procedure Performed:: Primary Low Transverse Section Description of Surgical Findings:: Maximum cervical dilation of 7cm. 28 hour induction. Normal appearing uterus, ovaries, and fallopian tubes. Amniotic fluid clear. Normal appearing placenta. Delivery of live female with APGARs of 9/9. weight 8lb7oz. vertex in ROP position retail equipment associate: William Mayfield Type of Anesthesia:: Epidural Anesthesiologist: Sabino Garcia Special Medications: none Specimen's removed: none Drains: [place] Estimated Blood Loss (mL): 600 Fluids Replaced: 1500cc LR Description of Procedure: Diamond was informed of indication for delivery (arrest of dilation). Procedures, risks, and postoperative expectations reviewed. All questions were answered prior to taking her to the OR. She was taken to the OR with IV running. She was given two grams of Ancef intravenously for surgical prophylaxis. Her epidural was dosed and tested for adequacy. She was prepped and draped in the supine position with a leftward tilt. A Pfannesteil skin incision was then made with the scalpel. The underlying subcutaneous tissue was dissected down to the level of the fascia with sharp and blunt dissection. The fascia was then incised in the midline and this incision was extended bilaterally with the Gonzalez scissors. The upper portion of the fascial defect was then grasped with two Damion clamps, elevated and the rectus muscles were dissected off with blunt and sharp dissection. In a similar fashion the rectus muscles were dissected off the lower fascial defect. The rectus muscles were then sep-arated in the midline, the peritoneum identified and entered sharply. The peritoneal defect was the enlarged using blunt retraction. A bladder blade was placed. A bladder flap was created and the bladder blade replaced. The lower uterine segment was then incised transversely. Once the cavity was entered the uterine defect was enlarged using blunt lateral and superior traction. The baby's head and body was then delivered atraumatically. The nares and mouth were suctioned with a bulb suction. The baby was dried and stimulated with a good cry noted. Delayed cord clamping was employed. The cord was then clamped and cut. The baby was handed to the waiting nurse for evaluation. The placenta was then delivered manually, the uterus exteriorized, and then the cavity was cleared of all clot and membranes. The uterine incision was repaired in two layers with #1 Vicryl suture. The posterior cul de sac was cleared of all clot and fluid. The uterus was then returned to the abdomen. The gutters were cleared of all clot and fluid. The uterine incision was then reinspected and found to be hemostatic. The pritoneum was closed with a running stitch of 2-0 Vicryl suture. The rectus muscles were reapproximated with interrupted sutures of 0-Vicryl. The fascia was closed with a running stitch of #1 Stratofix suture. The subcutaneous tissue was closed with a running stitch of 2-0 Vicryl. The skin was closed with a subcuticular stitch of 4-0 Monocryl. Sponge, lap, needle, and instrument counts were correct. SHe was taken to her recovery room in stable condition. Grafts/Implants Used: none - Complications none - Admit VTE Documentation VTE Present on Admission: No VTE Mechan Device Prophylaxis: SCD's VTE Pharm Prophylaxis ordered?: No
[2018-08-20] MEDS: Oxytocin 30 units/NS 500 ml 30 UNITS/500 ML IV.SOLN 167 UNITS IV (11:10)
--- NOTE | 2018-08-20 11:27 | DCINST_ITS ---
Discharge Diet: No Restrictions Discharge Activity: Return to Normal Activity, May Not Drive, May not drive while taking narcotic pain medications., May Shower Return to work on:: 10/18/18 May shower in (days): 0 May resume sexual activity in: 4-6 weeks Call your doctor if your incision/area has: Sudden Increased Bleeding, Increased Pain/ Swelling, Increased Redness, Foul Smelling Discharge, Swelling at the incision site Call your doctor if you observe: Fever of 101 or Higher, Inability to urinate, Inability to have a bowel movement, Using more than one pad per hour, Shortness of breath, Chest pain, Calf discomfort, Uncontrolled pain Remove Dressing in (days):: 3 Cleanse incision/area with: Soap & Water Additional Instructions: If you experience any of the following, contact your healthcare provider. * Bleeding that soaks a pad every hour for 2 hours * Fever 100.4 or higher * Unrelieved incision or abdominal pain * Swelling, redness, discharge or bleeding from your incision or episiotomy site * Your incision begins to separate * Problems urinating (including inability to urinate or burning while uri nating). * Visual changes * Severe headache * Flu-like symptoms * Pain or redness in one of both of your breasts * Pain, warmth, tenderness or swelling in your legs, especially the calf area * Frequent nausea and vomiting * Symptoms of depression or anxiety If you experience any of the following, call 911 or go to the nearest Emergency Room. * Chest pain * Problems breathing * Seizure activity * Partial or complete paralysis of a body part, slurred speech, weakness or drooping of the face, or a sudden inability to walk or hold your balance Allergies/Adverse Reactions: Allergies No Known Allergies Allergy (Verified 07/30/18 13:42) Medications to take at Discharge Vits [Prenatabs FA ] 1 tablet PO DAILY 07/30/18 Ibuprofen 600 mg PO 4X/DAY #30 tab 08/20/18 Oxycodone [Oxyir] 5 - 10 mg PO Q4H PRN PRN 7 Days #28 tab 08/20/18 The following prescriptions were given: Oxycodone [Oxyir] 5 - 10 mg PO Q4H PRN PRN 7 Days #28 tab PRN Reason: Mod-Severe Pain (4-10/10) Ibuprofen 600 mg PO 4X/DAY #30 tab Follow-Up: Call to make an appointment with your doctor for an incision check in 1-2 weeks. You will also need a 6 week post- follow up appointment. Test results from this visit will be discussed in further detail at your follow- up appointment, if applicable. Please Follow Up With: Eleuterio Watt MD When: 1-2 weeks Primary Care Physician: Care Physician,No Primary [Primary Care Provider] - Proposed Discharge Date: 08/22/18
[2018-08-20] MEDS: Lactated Ringers 1,000 ML 100 ML IV (12:10)
[2018-08-20] MEDS: Acetaminophen 500 MG Tablet 1000 MG PO (16:40)
[2018-08-20] MEDS: Ketorolac 30 MG/ML Syringe IV (18:31)
[2018-08-20] MEDS: Cefazolin 1 GM/50 ML BAG IV (18:32)
[2018-08-21] VITALS (8 sets, daily range): BP systolic 104–135; BP diastolic 57–90; PULSE 88–99; RESP 14–18; TEMP 36.2–37; O2SAT 96–100
[2018-08-21] MEDS: Lactated Ringers 1,000 ML 100 ML IV
[2018-08-21] MEDS: Ketorolac 30 MG/ML Syringe IV ×3 (00:08→12:17)
[2018-08-21] MEDS: Cefazolin 1 GM/50 ML BAG IV (01:48)
[2018-08-21 06:27] LABS: Hematocrit 28.1 % (37-47); Hemoglobin 8.9 g/dl (12.0-15.0); Mean Corp Hgb Conc 31.7 g/gl (32-36); Mean Corpuscular Hgb 27.4 pg (27.0-32.0); Mean Corpuscular Volume 86.5 fL (81-99); Mean Platelet Vol. 10.4 fl (6.2-12.0); Platelet Count 235 K/mm3 (150-450); RBC Distribution Width CV 15.5 % (11.6-14.6); RBC Distribution Width SD 46.4 fl (35.1-43.9); Red Blood Count 3.25 M/mm3 (4.2-5.4); White Blood Count 20.8 K/mm3 (4.4-11.0)
[2018-08-21 07:11] LABS: Scan Indicated on CBC? Y/N NO
--- NOTE | 2018-08-21 07:33 | PCM.PN.OB ---
Patient Problems: Active and Suspected Problems Arrest of dilation, delivered, current hospitalization (Acute) Subjective: No specific complaints. Breast feeding. Bleeding light Objective: Afeb VSS stable. Hgb appropriate.. Urine output adequate. - Physical Exam General: Alert, Oriented x3, Cooperative, No apparent distress Lungs: Clear to auscultation, Normal air movement Cardiovascular: Regular rate, Regular Rhythm Abdomen: Soft, Non Tender, Non-Distended, - - Incision dressing dry Extremities: No edema Neurological: Neuro grossly intact Psych/Mental Status: Normal Affect Comment: Lochia light Vital Signs Temp Pulse Resp BP Pulse Ox 97.8 F 88 18 117/69 100 08/21/18 04:00 08/21/18 04:00 08/21/18 06:00 08/21/18 04:00 08/21/18 06:00 Oxygen Delivery Method Room Air Weight: 219 lb 5.759 oz Body Mass Index (BMI) 37.6 Intake and Output for Last 24 Hours 08/19/18 08/20/18 08/21/18 23:59 23:59 23:59 Intake Total 4298 / 4298 2133 / 2133 Output Total 1800 / 1800 2400 / 2400 Balance 2498 / 2498 -267 / -267 Laboratory Tests Past 24 Hrs 08/21/18 06:00 WBC 20.8 H RBC 3.25 L Hgb 8.9 L Hct 28.1 L MCV 86.5 MCH 27.4 MCHC 31.7 L RDW 15.5 H RDW Differential 46.4 H Plt Count 235 MPV 10.4 Medical Necessity - Tobacco Use Smoking Status: Current every day smoker Assessment/Plan All Active Problems 37 weeks gestation of (Acute) False labor (Acute) Arrest of dilation, delivered, current hospitalization (Acute) Doing well on POD#1. Continue routine PO care. D/C stanislav chapa today.
[2018-08-21] MEDS: Prenatal Vits Tablet 1 TABLET PO (10:39)
[2018-08-21] MEDS: Senna/Docusate Sodium 1 Tablet PO (10:39)
[2018-08-21] MEDS: oxyCODONE 5 MG Tablet PO ×3 (10:58→21:55)
[2018-08-21] MEDS: 0.9% Saline Lock 10 ML Syringe IV (12:17)
[2018-08-22 02:03] VITALS: BP 136/95; PULSE 107; RESP 16; TEMP 36.5
[2018-08-22] MEDS: Acetaminophen 500 MG Tablet 1000 MG PO (04:08)
[2018-08-22 04:38] LABS: Absolute Lymphocyte Count 2.54 X10^3/ul (0.83-4.51); Absolute Neutrophil Count 14.7 X10^3/uL (2.0-7.7); Basophil# 0.05 X10^3/uL; Basophil% 0.3 % (0-1); Eosinophil# 0.25 X10^3/uL; Eosinophils% 1.3 % (0-5); Hematocrit 28.8 % (37-47); Hemoglobin 9.2 g/dl (12.0-15.0); Lymphocyte # 2.54 X10^3/ul (4.0); Lymphocyte % 12.8 % (19-41); Mean Corp Hgb Conc 31.9 g/gl (32-36); Mean Corpuscular Hgb 27.5 pg (27.0-32.0); Mean Platelet Vol. 10.4 fl (6.2-12.0); Monocyte# 2.05 X10^3/uL; Monocyte% 10.3 % (0-10); Neutrophil # 14.69 X10^3/uL (2.7-7.7); Platelet Count 270 K/mm3 (150-450); RBC Distribution Width CV 15.7 % (11.6-14.6); Red Blood Count 3.35 M/mm3 (4.2-5.4); White Blood Count 19.8 K/mm3 (4.4-11.0)
[2018-08-22 04:44] LABS: Differential Indicated SCAN CRITERIA MET; POSITIVE COUNT NO; POSITIVE DIFFERENTIAL YES; POSITIVE MORPHOLOGY NO
[2018-08-22] MEDS: oxyCODONE 5 MG Tablet PO ×2 (06:45→10:35)
[2018-08-22 08:26] VITALS: BP 105/72; PULSE 83; RESP 14; TEMP 36.3
--- NOTE | 2018-08-22 08:29 | PCM.PN.OB ---
Patient Problems: Active and Suspected Problems Arrest of dilation, delivered, current hospitalization (Acute) Subjective: No specific complaints. Bleeding light. Pain reasonably controlled with PO medications. Objective: Afeb VSS - Physical Exam General: Alert, Oriented x3, Cooperative, No apparent distress Lungs: Clear to auscultation, Normal air movement Cardiovascular: Regular rate, Regular Rhythm Abdomen: Soft, Non Tender, Non-Distended, - - Incision dressing dry. Extremities: No edema Skin: No rashes Neurological: Neuro grossly intact Psych/Mental Status: Normal Affect Comment: Lochia light Vital Signs Temp Pulse Resp BP Pulse Ox 97.4 F L 83 14 105/72 100 08/22/18 08:26 08/22/18 08:26 08/22/18 08:26 08/22/18 08:26 08/21/18 20:24 Oxygen Delivery Method Room Air Weight: 219 lb 5.759 oz Body Mass Index (BMI) 37.6 Intake and Output for Last 24 Hours 08/20/18 08/21/18 08/22/18 23:59 23:59 23:59 Intake Total 4298 / 4298 2133 / 2133 Output Total 1800 / 1800 2900 / 2900 Balance 2498 / 2498 -767 / -767 Laboratory Tests Past 24 Hrs 08/22/18 04:15 WBC 19.8 H RBC 3.35 L Hgb 9.2 L Hct 28.8 L MCV 86.0 MCH 27.5 MCHC 31.9 L RDW 15.7 H RDW Differential 47.0 H Plt Count 270 MPV 10.4 Immature Gran % (Auto) 1.300 H Neut % (Auto) 74.0 H Lymph % (Auto) 12.8 L [place] % (Auto) 10.3 H Eos % (Auto) 1.3 Baso % (Auto) 0.3 Absolute Neuts (auto) 14.7 H Absolute Lymphs (auto) 2.54 Total Counted Not Reportable Medical Necessity - Tobacco Use Smoking Status: Current every day smoker Assessment/Plan All Active Problems 37 weeks gestation of (Acute) False labor (Acute) Arrest of dilation, delivered, current hospitalization (Acute) Doing well on PO day#2. Cleared for discharge home today. Home going instructions and warnings given.
--- NOTE | 2018-08-22 08:33 | DS.PCM_ITS ---
Discharge Date and Diagnosis - Problem List Patient Problems: Active and Suspected Problems Arrest of dilation, delivered, current hospitalization (Acute) Date of Admission: 08/19/18 Date of Discharge: 08/22/18 - Primary Discharge Diagnosis Active and Suspected Problems Arrest of dilation, delivered, current hospitalization (Acute), S/P Primary LTCS Hospital Course and Treatment Operations: - - Primary LTCS Procedures: - - Pitocin induction, epidural Summary of Care Provided: The patient is a 22 year old F admitted for post dates induction of labor. Arrested at 7 cm dilation. Primary LTCS performed without complication with delivery of a live wihtout complication. Post operative course unremarkable. Discharged home on POD#2.[] Patient Problems: Active and Suspected Problems Arrest of dilation, delivered, current hospitalization (Acute) - Physical Exam Vital Signs Temp Pulse Resp BP Pulse Ox 97.4 F L 83 14 105/72 100 08/22/18 08:26 08/22/18 08:26 08/22/18 08:26 08/22/18 08:26 08/21/18 20:24 Oxygen Delivery Method Room Air Weight: 219 lb 5.759 oz Body Mass Index (BMI) 37.6 Intake and Output for Last 24 Hours 08/20/18 08/21/18 08/22/18 23:59 23:59 23:59 Intake Total 4298 / 4298 2133 / 2133 Output Total 1800 / 1800 2900 / 2900 Balance 2498 / 2498 -767 / -767 Laboratory Tests Past 24 Hrs 08/22/18 04:15 WBC 19.8 H RBC 3.35 L Hgb 9.2 L Hct 28.8 L MCV 86.0 MCH 27.5 MCHC 31.9 L RDW 15.7 H RDW Differential 47.0 H Plt Count 270 MPV 10.4 Immature Gran % (Auto) 1.300 H Neut % (Auto) 74.0 H Lymph % (Auto) 12.8 L [place] % (Auto) 10.3 H Eos % (Auto) 1.3 Baso % (Auto) 0.3 Absolute Neuts (auto) 14.7 H Absolute Lymphs (auto) 2.54 Total Counted Not Reportable Discharge Diet: No Restrictions Discharge Activity: Return to Normal Activity, May Not Drive, May not drive while taking narcotic pain medications., May Shower Return to work on:: 10/18/18 May shower in (days): 0 May resume sexual activity in: 4-6 weeks Call your doctor if your incision/area has: Sudden Increased Bleeding, Increased Pain/ Swelling, Increased Redness, Foul Smelling Discharge, Swelling at the incision site Call your doctor if you observe: Fever of 101 or Higher, Inability to urinate, Inability to have a bowel movement, Using more than one pad per hour, Shortness of breath, Chest pain, Calf discomfort, Uncontrolled pain Remove Dressing in (days):: 3 Cleanse incision/area with: Soap & Water Home Medications: Medications to take at Discharge RX: Vits [Prenatabs FA ] 1 tablet PO DAILY 07/30/18 RX: Ibuprofen 600 mg PO 4X/DAY #30 tab 08/20/18 RX: Oxycodone [Oxyir] 5 - 10 mg PO Q4H PRN PRN 7 Days #28 tab 08/20/18 Following Prescrptions Were Given to Patient: RX: Oxycodone [Oxyir] 5 - 10 mg PO Q4H PRN PRN 7 Days #28 tab PRN Reason: Mod-Severe Pain () RX: Ibuprofen 600 mg PO 4X/DAY #30 tab Primary Care Physician: Care Physician,No Primary [Primary Care Provider] - Please Follow Up With: Eleuterio Watt MD When: 1-2 weeks Disposition: Home Minutes spent on discharge:: 15 Patient Condition:: Good Medical Necessity - Tobacco Use Smoking Status: Current every day smoker Meaningful Use Info Meaningful Use Diagnoses (Choose all that apply): None applicable
[2018-08-22 10:45] VITALS: BP 129/74; PULSE 83; RESP 16; TEMP 36.6; O2SAT 98
--- NOTE | 2018-08-22 12:59 | CASEMGMT ---
Addendum entered and electronically signed by Joseline Wild 08/22/18 13:03: Late entry: Information was discussed during assessment but omitted from documentation in error: Talked with MOB about need to call children services in relation to substance exposed in utero though does not necessarily mean a case will be opened just because a report is being made. Answered MOB's questions. -GOLDY haile-John Paul, FASHION BUYER Original Note: Social Work Assessment Labor and Delivery Unit Date of Referral: 08/20/2017 Time of Referral: 1548 Referred By: Dr. Watt Date of Intervention: 08/22/2018 Time of Intervention: 1025 Reason for Referral: maternal marijuana use, history of anxiety and depression History obtained from: medical records and mother of baby (MOB) Household composition: MOB, father of baby (FOB) and plan for baby to live in home. Home situation indicated to be safe and adequate, MOB reports just moved into current home 2 weeks ago. Previously had lived with FOB?s parents. Patient's parent/guardian status: MOB is 22 year old single female, involved with FOB Ryan Perez (age 25) for the last 2 or 3 years. MOB denies any history of abuse, control, or intimidation in this relationship. baby, Radha Perez, is the first child for both parents. Medical History: MOB started care between 7-8 weeks gestation, and adequate visits thereafter. MOB G2, P1, per Chart 1 EAB. MOB delivered baby via primary caesarian section. Baby born weighing 8 pounds 7 ounces. ?s 9 and 9 at 1 and 5 minutes of life. Educational Status: MOB graduated high school, denies any issues with reading, writing, or learning comprehension. Financial Status: MOB was working at [employer] but plans to stay at home with baby. FOB works fulltime as a painter chassis for the [employer]. Infant Supplies: MOB reports to have diapers, wipes, clothing, some formula to get started, crib, pack-n-play, bassinet, and car seat. Childcare/Caregiver(s): MOB and then help from family as needed. Transportation: No reported issues. Programs/Agencies Involved: Connected with [facility] for food and medical. Connected with WIC and MOB reports to have an appointment on 1-17-19. MOB declines Help Me Grow referral. Denies any other current agency involvement. Children Services/Legal Issues: As a teen MOB did spend time in foster care so some involvement with children services at that time. MOB denies any involvement as an adult. Note, MOB denies any safety concerns with any adults or person in MOB?s life currently. Behavioral Health Issues: Mental Health History: MOB reports depression and anxiety as a teen, reports much of which was related to situational issues. MOB denies any history of suicidal thoughts, plans, intent or past attempts. MOB reports to feel happy currently. Substance Use History: MOB reports history of social marijuana use and did smoke 2 to 3 times after knowledge of . MOB reports use during was reduced in amount as compared to prior to . MOB reports has not used since about 10 weeks gestation. MOB reports social alcohol use and did drink 2 glasses of wine during this with the last glass being on New Year?s Katina. MOB denies any alcohol dependence or that other family members have expressed concern about MOB?s usage. MOB denies other drug use history including cocaine, meth, heroin, or narcotic drugs. MOB is a tobacco smoker reducing use to 1 pack every 3 days during this . Drug Screens: Maternal drug screen positive in January 2018. No rescreens for MOB. Baby?s urine drug screen negative and meconium is pending. Family/Social Stressors: MOB with history of depression and anxiety, though denies current or recent issues with symptoms. Maternal history of substance use but reports was able to cease use shortly after knowledge. MOB and FOB just moved out of [facility]s parental home 2 weeks ago into own home. Support Systems: MOB reports a strong support system from MOB?s father, FOB?s parents (who live down the road from MOB), and FOB?s brother and (who just had a baby a month ago). Depression/Shaken Baby/Safe Sleeping: Introduced MOB to depression and anxiety, risk factors present, and importance of seeking out help should symptoms arise. MOB reports would be more open to counseling as an intervention over medication. MOB reports to feel happy right now, excited about the baby and to love the baby. MOB reports understanding about shaken baby prevention as well as what safe sleeping is. ASSESSMENT: MOB pleasant and cooperative, answered questions and was nondefensively. MOB listed to education on depression, though seemed less interested in this topic as compared to other topics, as evidenced by not asking questions and reporting that feels good and not worried about developing any mood issues. MOB accepting of resources for such however, and accepted resources list of social service agencies in [facility]. MOB declines Help Me Grow referral. MOB reports to have adequate support, will have help at home going from family, and to have needed supplies. MOB appearing attentive to baby, gazed at baby, smiled when talking about baby with affect brightening. Safe Plan of Care for infant related to substance use: Addressed substance use with MOB. MOB stating intent to remain marijuana free in the future, that focus is now about baby rather than about self. MOB accepting that should not be using marijuana while and did express understanding. Addressed that should MOB?s intentions to remain marijuana or substance free ever change, how would MOB ensure safety of . MOB reports would baby to go grandparents? home, would not heri around the baby or care for the baby after using. MOB voicing emphatically in voice inflection that ?I agree with that,? regarding not exposing a baby to drugs or being around baby after using drugs. PLAN: MOB and baby to home with family support. MOB had community resources lists and depression packet for home going resources. No other services requested or indicated. -JARAD Villarreal, FASHION BUYER
--- NOTE | 2018-08-22 13:11 | CASEMGMT ---
Social Work Labor and Delivery Unit Call to [facility] ([facility]) at [phone]. Spoke with Tanisha in the intake department. Referral due to substance exposed based on early maternal drug screen, reports of use 2-3 times after positive screen (per MOB's report). Reported MOB's endorsement of alcohol use (wine) twice during with last use 08-07-2018. Informed Tanisha that medical record in indicates MOB with history of Milla use, which this credit underwriter did not specifically address with MOB. Note, MOB did deny history of use of heroin, cocaine, meth, or other narcotic medications but this credit underwriter did not specifically ask MOB about the history of Milla and MOB did not disclose use of this substance to this credit underwriter. Tanisha asks for call back if meconium is positive. Other than monitoring for meconium results, no other hospital social contact worker requested or indicated. -KIRBY Villarreal, OUTER [employer]ER [employer]
--- NOTE | 2018-09-05 16:22 | CASEMGMT ---
Addendum entered and electronically signed by Joseline Wild 09/05/18 16:38: Reviewed and approve PSYCHIATRIC CLINICIAN student advisory intern documentation below. -KIRBY Villarreal, INTERMODAL CUSTOMER SERVICE Original Note: Social Work Labor and Delivery Baby's meconium toxicology results returned negative. -Amira Presley, PSYCHIATRIC CLINICIAN Student Partner Integration Planner.
== END 2018-08-22 11:05 | disposition home or self-care (01) | DRG 540 ==
PROVIDERS: Admitting Provider Obstetrics & Gynecology; Visit Provider Obstetrics & Gynecology
DX: O61.0 Failed medical induction of labor (principal); O62.0 Primary inadequate contractions; O48.0 Post-term pregnancy; O99.334 Smoking (tobacco) complicating childbirth; F17.210 Nicotine dependence, cigarettes, uncomplicated; Z37.0 Single live birth; Z3A.41 41 weeks gestation of pregnancy
CPT/HCPCS: 59025; 59050; 85025; 85027; 86850; 86900; 99218; J7120; A4216; G0378

== ENCOUNTER → 2018-10-24 11:57 | Outpatient (CLI) | payer MEDICAID, SELFPAY ==
[2018-10-24 12:47] LABS: Absolute Lymphocyte Count 2.07 X10^3/ul (0.83-4.51); Absolute Neutrophil Count 4.4 X10^3/uL (2.0-7.7); Basophil# 0.04 X10^3/uL; Basophil% 0.5 % (0-1); Eosinophil# 0.12 X10^3/uL; Eosinophils% 1.6 % (0-5); Hematocrit 40.6 % (37-47); Hemoglobin 12.5 g/dl (12.0-15.0); Lymphocyte # 2.07 X10^3/ul (4.0); Lymphocyte % 27.2 % (19-41); Mean Corp Hgb Conc 30.8 g/gl (32-36); Mean Corpuscular Hgb 26.4 pg (27.0-32.0); Mean Corpuscular Volume 85.7 fL (81-99); Mean Platelet Vol. 10.9 fl (6.2-12.0); Monocyte# 0.91 X10^3/uL; Neutrophil # 4.44 X10^3/uL (2.7-7.7); Neutrophil % 58.4 % (47-70); POSITIVE COUNT NO; POSITIVE DIFFERENTIAL NO; POSITIVE MORPHOLOGY NO; Platelet Count 319 K/mm3 (150-450); RBC Distribution Width CV 15.2 % (11.6-14.6); RBC Distribution Width SD 47.1 fl (35.1-43.9); Red Blood Count 4.74 M/mm3 (4.2-5.4); White Blood Count 7.6 K/mm3 (4.4-11.0)
[2018-10-24 13:09] LABS: Internal QC Validated? YES +Cl - CLEAR BKGD; Pregnancy, Urine Negative Negative
== END ==
PROVIDERS: Referring Provider Specialist; Visit Provider Specialist
DX: Z01.818 Encounter for other preprocedural examination (principal)
CPT/HCPCS: 36415; 81025; 85025

== ENCOUNTER → 2020-03-24 12:31 | Outpatient (CLI) | payer MEDICAID, SELFPAY ==
[2020-03-24 11:45] VITALS: BMI 37.6
[2020-03-24 13:18] LABS: Absolute Lymphocyte Count 2.01 X10^3/uL (0.83-4.51); Absolute Neutrophil Count 10.2 X10^3/uL (2.0-7.7); Basophil# 0.06 X10^3/uL; Basophil% 0.4 % (0-1); Eosinophil# 0.36 X10^3/uL; Eosinophils% 2.5 % (0-5); Hematocrit 41.2 % (37-47); Hemoglobin 13.4 g/dL (12.0-15.0); Lymphocyte # 2.01 X10^3/ul (4.0); Lymphocyte % 14.1 % (19-41); Mean Corp Hgb Conc 32.5 g/dL (32-36); Mean Corpuscular Hgb 29.3 pg (27.0-32.0); Mean Corpuscular Volume 90.2 fL (81-99); Mean Platelet Vol. 10.7 fl (6.2-12.0); Monocyte# 1.46 X10^3/uL; Monocyte% 10.2 % (0-10); NRBC Flagged by Analyzer 0 % (0-5); Neutrophil # 10.24 X10^3/uL (2.7-7.7); Neutrophil % 71.8 % (47-70); Platelet Count 301 K/mm3 (150-450); RBC Distribution Width CV 13.5 % (11.6-14.6); RBC Distribution Width SD 44.7 fl (35.1-43.9); Red Blood Count 4.57 M/mm3 (4.2-5.4); White Blood Count 14.3 K/mm3 (4.4-11.0)
[2020-03-24 14:14] LABS: HIV - WCH Non-Reactive (Nonreactive); Hepatitis B Surface Antigen Non-Reactive (Nonreactive); Hepatitis C Antibody Non-Reactive (Nonreactive); Rubella IgG 101.3 IU/mL
[2020-03-24 14:26] LABS: Amphetamine Urine VISTA NEGATIVE (<1000 ng/mL); Barbiturate Urine VISTA NEGATIVE (< 200 ng/mL); Benzodiazepine Urine VISTA NEGATIVE (< 200 ng/mL); Cocaine Urine VISTA NEGATIVE (< 300 ng/mL); Ecstacy Urine VISTA NEGATIVE (< 500 ng/mL); Methadone Urine VISTA NEGATIVE (< 300 ng/mL); PCP Urine VISTA NEGATIVE (< 25 ng/mL); THC Urine VISTA POSITIVE (< 50 ng/mL); Vista UDS pH Range 6
[2020-03-24 15:43] LABS: Chlamydia Trachomatis by PCR Negative (Negative); Neisserai gonorrhoeae by PCR Negative (Negative); Probe Check PASS; Sample Adequacy Control PASS; Specimen Processing Control PASS
[2020-03-24 18:31] LABS: Amphetamine Urine VISTA NEGATIVE (<1000 ng/mL); Barbiturate Urine VISTA NEGATIVE (< 200 ng/mL); Benzodiazepine Urine VISTA NEGATIVE (< 200 ng/mL); Cocaine Urine VISTA NEGATIVE (< 300 ng/mL); Ecstacy Urine VISTA NEGATIVE (< 500 ng/mL); Methadone Urine VISTA NEGATIVE (< 300 ng/mL); PCP Urine VISTA NEGATIVE (< 25 ng/mL); THC Urine VISTA POSITIVE (< 50 ng/mL); Vista UDS pH Range 6
[2020-03-27 02:16] LABS: Rapid Plasmin Reagin (RPR) NONREACTIVE (NONREACTIVE)
[2020-03-27 03:06] LABS: Chlamydia By Nucleic Acid AMP Negative (Negative)
[2020-03-27 11:28] LABS: Gonococcus By Nucleic Acid AMP Negative (Negative)
== END ==
PROVIDERS: Referring Provider Obstetrics & Gynecology; Visit Provider Obstetrics & Gynecology
DX: Z34.82 Encounter for supervision of other normal pregnancy, second trimester (principal); Z31.430 Encounter of female for testing for genetic disease carrier status for procreative management
CPT/HCPCS: 36415; 80307; 85025; 86592; 86703; 86762; 86803; 86850; 86900; 86901; 87086; 87088; 87340; 87491; 87591

== ENCOUNTER → 2020-05-09 07:42 | Outpatient (CLI) | payer MEDICAID, SELFPAY ==
[2020-04-23 12:13] VITALS: BMI 37.6
--- NOTE | 2020-05-09 07:43 | US_ITS ---
STUDY: SECOND AND THIRD TRIMESTER OBSTETRICAL ULTRASOUND REASON FOR EXAM: Female, 24 years old anatomy LMP: 12/14/2019. TECHNIQUE: Transabdominal TECHNICAL QUALITY: Adequate. PRIOR ULTRASOUND: None. FINDINGS: There is a single intrauterine fetus. The fetus is in an transverse lie with the head on the maternal left side. There is demonstrated cardiac activity with a heart rate of 147 bpm. There is a normal amniotic fluid volume. The largest amniotic fluid pocket measures 5.4 cm x 2.6 cm. The amniotic fluid index (CESAR) is within normal limits. The placenta is posterior in location and is not low lying. There are Grade 1 placental changes. The cervix measures 4.1 cm in length. The bilateral adnexal regions are normal. BIOMETRY: BPD: 4.4 cm: 19 weeks, 2 days HC: 16.8 cm: 19 weeks, 3 days AC: 14.9 cm: 20 weeks, 1 days FL: 3.1 cm: 19 weeks, 4 days CI: 74.2% FL/BPD: 71% FL/HC: FL/AC: 21% HC/AC: 1.13 age by current US: 19 weeks, 4 days. STEPHEN by current US: 09/29/2020. Estimated weight: 318 grams, +/- 47 grams, 4.5 %. Age by LMP: 21 weeks, 0 days. STEPHEN by LMP: 09/19/2020. ANATOMY: Gender: Female Cranium: Normal lateral ventricles. Normal choroid plexus. Normal cerebellum. Normal cisterna magna. Normal face, nose and lips. Chest: Normal 4-chamber heart. Abdomen/Pelvis: Normal diaphragm. Normal stomach. Normal abdominal wall. Normal cord insertion. Normal 3 vessel cord. Normal kidneys. Normal bladder. Spine: Normal cervical spine. Normal thoracic spine. Normal lumbar spine. Normal sacrum. Extremities: Normal bilateral upper extremities. Normal bilateral lower extremities. US/OB Anatomy Scan IMPRESSION: Single live uterine gestation with a mean gestational age of 19 weeks and 4 days. The weight is in the 4.5 percentile. Follow-up is recommended. Electronically Signed: Alfonso Goodwin, at 14:18 EDT , Service support ,
== END ==
PROVIDERS: Referring Provider Nurse Practitioner Women's Health; Visit Provider Nurse Practitioner Women's Health
DX: Z34.90 Encounter for supervision of normal pregnancy, unspecified, unspecified trimester (principal)
CPT/HCPCS: 76805

== ENCOUNTER → 2020-06-20 09:20 | Outpatient (CLI) | payer MEDICAID, SELFPAY ==
[2020-06-16 09:11] VITALS: BMI 31.0
== END ==
PROVIDERS: Referring Provider Obstetrics & Gynecology; Visit Provider Obstetrics & Gynecology
DX: Z01.812 Encounter for preprocedural laboratory examination (principal)
CPT/HCPCS: 87635; C9803; U0003

== ENCOUNTER → 2020-06-30 09:31 | Outpatient (CLI) | payer MEDICAID, SELFPAY ==
[2020-06-16 09:11] VITALS: BMI 31.0
[2020-06-30 09:53] LABS: Absolute Lymphocyte Count 1.86 X10^3/uL (0.83-4.51); Absolute Neutrophil Count 11.6 X10^3/uL (2.0-7.7); Basophil# 0.07 X10^3/uL; Basophil% 0.5 % (0-1); Eosinophil# 0.28 X10^3/uL; Eosinophils% 1.8 % (0-5); Hemoglobin 12.5 g/dL (12.0-15.0); Lymphocyte # 1.86 X10^3/ul (4.0); Mean Corp Hgb Conc 32.1 g/dL (32-36); Mean Corpuscular Hgb 29.7 pg (27.0-32.0); Mean Corpuscular Volume 92.6 fL (81-99); Mean Platelet Vol. 10.2 fl (6.2-12.0); Monocyte% 8.4 % (0-10); NRBC Flagged by Analyzer 0 % (0-5); Neutrophil # 11.64 X10^3/uL (2.7-7.7); Neutrophil % 74.8 % (47-70); Platelet Count 278 K/mm3 (150-450); RBC Distribution Width CV 13.2 % (11.6-14.6); RBC Distribution Width SD 44.6 fl (35.1-43.9); Red Blood Count 4.21 M/mm3 (4.2-5.4); White Blood Count 15.5 K/mm3 (4.4-11.0)
[2020-06-30 09:55] LABS: Glucose Challenge Gest 1H 50g 114 mg/dL (70-140)
== END ==
PROVIDERS: Referring Provider Obstetrics & Gynecology; Visit Provider Obstetrics & Gynecology
DX: Z13.1 Encounter for screening for diabetes mellitus (principal); Z34.90 Encounter for supervision of normal pregnancy, unspecified, unspecified trimester
CPT/HCPCS: 36415; 82950; 85025

== ENCOUNTER → 2020-07-15 08:48 | Outpatient (CLI) | payer MEDICAID, SELFPAY ==
[2020-06-30 09:46] VITALS: BMI 32.5
--- NOTE | 2020-07-15 08:49 | US_ITS ---
STUDY: SECOND AND THIRD TRIMESTER OBSTETRICAL ULTRASOUND - LIMITED REASON FOR EXAM: Female, 24 years old growth LMP: 12/14/2019. PRIOR ULTRASOUND: Comparison is made with prior examination dated 05/09/2020. TECHNIQUE: Transabdominal TECHNICAL QUALITY: Adequate. FINDINGS: There is a single intrauterine fetus. The fetus is in a breech presentation. There is demonstrated cardiac activity with a heart rate of 154 bpm. There is a normal amniotic fluid volume. The largest amniotic fluid pocket measures 7.4 cm x 7.5 cm. The amniotic fluid index (CESAR) is 17.11 cm. The placenta is posterior in location and is not low lying. There are Grade 1 placental changes. The cervix measures 4.5 cm in length. BIOMETRY: BPD: 7.67 cm: 30 weeks, 5 days HC: 28.28 cm: 31 weeks, 0 days AC: 25.18 cm: 29 weeks, 2 days FL: 5.65 cm: 29 weeks, 4 days Age by LMP: 30 weeks, 4 days. STEPHEN by LMP: 09/19/2020. age by prior US: 29 weeks, 1 days. STEPHEN by prior US: 09/29/2020. age by current US: 30 weeks, 1 days. STEPHEN by current US: 09/22/2020. Estimated weight: 1446 grams, +/- 214 grams, 13.4 percentile. US/OB Limited With Biometrics IMPRESSION: Single live intrauterine gestation with a mean gestational age of 29 weeks and 1 day. The measurements obtained today fall within the normal expected range. Electronically Signed: Alfonso Goodwin, at 10:11 EST , Service support ,
== END ==
PROVIDERS: Referring Provider Nurse Practitioner Women's Health; Visit Provider Nurse Practitioner Women's Health
DX: O09.92 Supervision of high risk pregnancy, unspecified, second trimester (principal); Z3A.00 Weeks of gestation of pregnancy not specified
CPT/HCPCS: 76816

== ENCOUNTER → 2020-07-17 12:58 | Outpatient (CLI) | payer MEDICAID, SELFPAY ==
[2020-07-17 11:01] VITALS: BMI 33.6
[2020-07-17 14:27] LABS: Amphetamine Urine VISTA NEGATIVE (<1000 ng/mL); Barbiturate Urine VISTA NEGATIVE (< 200 ng/mL); Benzodiazepine Urine VISTA NEGATIVE (< 200 ng/mL); Cocaine Urine VISTA NEGATIVE (< 300 ng/mL); Ecstacy Urine VISTA NEGATIVE (< 500 ng/mL); Methadone Urine VISTA NEGATIVE (< 300 ng/mL); PCP Urine VISTA NEGATIVE (< 25 ng/mL); THC Urine VISTA NEGATIVE (< 50 ng/mL); Vista UDS pH Range 6
== END ==
PROVIDERS: Referring Provider Obstetrics & Gynecology; Visit Provider Obstetrics & Gynecology
DX: O09.90 Supervision of high risk pregnancy, unspecified, unspecified trimester (principal); F12.90 Cannabis use, unspecified, uncomplicated; Z3A.00 Weeks of gestation of pregnancy not specified
CPT/HCPCS: 80307

== ENCOUNTER → 2020-08-12 07:44 | Outpatient (CLI) | payer MEDICAID, SELFPAY ==
[2020-06-30 09:46] VITALS: BMI 32.5
[2020-07-31 09:53] VITALS: BMI 34.1
--- NOTE | 2020-08-12 07:46 | US_ITS ---
STUDY: SECOND AND THIRD TRIMESTER OBSTETRICAL ULTRASOUND - LIMITED REASON FOR EXAM: Female, 24 years old growth LMP: 12/14/2019. PRIOR ULTRASOUND: Comparison is made with prior study dated 07/15/2020. TECHNIQUE: Transabdominal TECHNICAL QUALITY: Adequate. FINDINGS: There is a single intrauterine fetus. The fetus is in a cephalic presentation. There is demonstrated cardiac activity with a heart rate of 134 bpm. There is a normal amniotic fluid volume. The largest amniotic fluid pocket measures 4.8 cm x 4.2 cm. The amniotic fluid index (CESAR) is 17.9 cm. The placenta is posterior in location and is not low lying. There are Grade 1 placental changes. The cervix measures 5 cm in length. BIOMETRY: BPD: 8.41 cm: 33 weeks, 5 days HC: 30.27 cm: 33 weeks, 4 days AC: 29.06 cm: 33 weeks, 0 days FL: 6.48 cm: 33 weeks, 3 days Age by LMP: 34 weeks, 4 days. STEPHEN by LMP: 09/19/2020. age by prior US: 34 weeks, 1 days. STEPHEN by prior US: 09/22/2020. age by current US: 33 weeks, 1 days. STEPHEN by current US: 09/29/2020. Estimated weight: 2164 grams, +/- 320 grams, 15.4 percentile. US/OB Limited With Biometrics IMPRESSION: Single live intrauterine gestation with mean gestational age of 34 weeks and 1 day. The measurements obtained today following with in the normal expected range. Electronically Signed: Alfonso Goodwin, at 9:49 EST , Service support ,
== END ==
PROVIDERS: Referring Provider Obstetrics & Gynecology; Visit Provider Obstetrics & Gynecology
DX: O09.90 Supervision of high risk pregnancy, unspecified, unspecified trimester (principal)
CPT/HCPCS: 76816

== ENCOUNTER → 2020-08-29 12:32 | Outpatient (CLI) | payer MEDICAID, SELFPAY ==
[2020-08-29 10:17] VITALS: BMI 36.7
== END ==
PROVIDERS: Referring Provider Obstetrics & Gynecology; Visit Provider Obstetrics & Gynecology
DX: Z34.93 Encounter for supervision of normal pregnancy, unspecified, third trimester (principal); Z3A.36 36 weeks gestation of pregnancy
CPT/HCPCS: 87081

== ENCOUNTER → 2020-09-05 10:14 | Outpatient (CLI) | payer MEDICAID, SELFPAY ==
[2020-08-15 10:23] VITALS: BMI 35.6
[2020-09-05 09:40] VITALS: BMI 37.5
== END ==
LOC: MTDU 10:14
PROVIDERS: Visit Provider Nurse Practitioner Women's Health
DX: Z34.90 Encounter for supervision of normal pregnancy, unspecified, unspecified trimester (principal)
CPT/HCPCS: 87635; C9803; U0005; U0003

== ENCOUNTER 2020-09-12 09:35 | Inpatient (IN) | payer MEDICAID, SELFPAY ==
[2020-06-16 09:11] VITALS: BMI 31.0
[2020-09-05 09:40] VITALS: BMI 37.5
--- NOTE | 2020-09-09 11:09 | PCM.HPOB.BLA ---
- Problem List (1) Lab test negative for COVID-19 virus Status: Acute Comment: 09/08/20 (2) 36 weeks gestation of Status: Acute Comment: electronic covid test ordered 08/22/20 (scheduled for 09/12/20 at 0900) (3) SGA (small for gestational age), , affecting care of mother, antepartum Status: Acute Comment: 07/15 13%- repeat growth scan in 4 weeks (4) Tobacco use complicating Status: Acute Qualifiers: Comment: encouraged cessation. 04/23 down to 4 cig ppd (5) Supervision of high-risk Status: Acute Qualifiers: Comment: [id number] STEPHEN 09/19/20 girl candis Garcia [place] (6) Marijuana user Status: Acute Comment: Positive 03/24/20. Random tox screen, encouraged cessation (7) History of delivery Status: Acute Comment: AOD 7 cm, requests RLTCS with SM scheduled 09/12/20 @ 12 (8) Status: Acute Qualifiers: Comment: ntd screening declined. Carrier neg. , genetic low risk. anatomy reviewed. 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 Nancy Woodard MD) Smoking Status: Current every day smoker alcohol intake: never substance use type: marijuana caffeine: Yes what type of physical activity do you participate in: none seatbelt use: always do you feel safe at home: Yes additional social history: [place] Patient works at the [employer] Pregancy History 2 Elective abortions Hx Para 1 Spontaneous abortions Hx # Term Pregnancies Ectopic pregnancies Hx # Pregnancies Multiple births # of living children Past Pregnancies Del. Date Name GA/Weeks Outcome Route Bth Weight Gen Labor Lgth Anesthesia Del Locatn Provider FOB Unknown Radha 2018 41 live - full term 8lbs 9oz Female 17 spinal [facility] Delivery Date: stalled at 7, delivery Rosalia Flores HPI 37WK OB : Details: EARNEST KURTZ is a 24 year old who presents for RLTCS OB Visit STEPHEN Calculator Estimated Delivery Date Method Current WG Current Estimate 09/19/20 LMP (Uncertain) 38w 0d Other Estimates 09/26/20 Ultrasound #1 37w 0d Expected Delivery Route/Plan RLTCS with SM Specific Issue/Plans flu vaccine: declines tdap vaccine: given rhogam: na LARC form signed: yes movement and labor precautions reviewed. Problem list reviewed and updated with the most current plan of care details and appropriate orders placed. Relevant counseling for the gestational age provided. Continue routine care and follow up unless otherwise noted in visit notes/problem list details Initial Weight: 155 lb Date EGA Weight BP Urine Prot Glucose FHR FuHt Pres Dilation Effaced St Visit Note 03/24/20 14w 3d 156 lb (+16 oz) 96/60 160 FHT cons with LMP in 04/23/20 18w 5d 162 lb 2 oz (+7 lb 2 oz) 110/70 Negative Negative 161 MH-inner upper right thigh with superficial varicositie. 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 Thigh high jennifer hose ordered. Wear supportive shoes. No VB, LOF. Needs anatomy US at [facility] 05/19/20 22w 3d 167 lb (+12 lb) 130/66 150 22 SM- no vb lof good fm discussed growth scan 06/16/20 26w 3d 181 lb (+26 lb) 112/80 Negative Negative 150 26 SM- no vb lof good fm no regular ctx ordered repeta growth us 06/30/20 28w 3d 189 lb 6 oz (+34 lb 6 oz) 110/70 Negative Negative 154 28 MH-NO VB, LOF. Good FM. 28 wk labs. Growth US at 30. MH-NO VB, LOF. Good FM. 28 wk labs. Growth US at 30. Made aware CS is with RAJI 2/5 at noon 07/17/20 30w 6d 196 lb (+41 lb) 135 30 SM- no vb lof good fm n oreuglar ctx 07/31/20 32w 6d 199 lb (+44 lb) 111/74 Negative Negative 140 34 SM- no vb lof good fm no regular ctx 08/15/20 35w 0d 208 lb (+53 lb) 118/72 Negative Negative 140 35 Sm- SM- no vb lof good fm no regular ctx nl growth US 08/29/20 37w 0d 214 lb (+59 lb) 112/76 Negative Negative 140 37 0.5 SM- no vb lof Good fm no regular ctx 09/05/20 38w 0d 219 lb (+64 lb) 122/80 Negative Negative 140 39 Cephalic 0.5 SM- no vb lof good fm no reuglar ctx plan rltcs next week ACOG First Trimester First Trimester: Desire for , Alcohol, Tobacco Cessation, Illicit/Recreational Drug/Substance Use, Intimate Partner Violence, Barriers to care, Unstable Housing, Communication Barriers, Environmental/Work Hazards, Anticipated Course of Care, Toxoplasmosis Precations, Use of Any medications, Sexual activity, Exercise, Dental Care, Sauna/Hot tub use, Seat Belt use, Childbirth classes/Hospital facilities, , Travel, Indications for US and Screening for Aneuploidy Second Trimester Second Trimester: Signs and Symptoms of Labor, Selecting a care provider, Reproductive Life Planning, Care Planning, Tobacco Cessation, Depression/Anxiety and Intimate Partner Violence Third Trimester Third Trimester: Pain Management Plans, Labor support person(s), Immediate Larc, Movement Monitoring and Feeding Yes ; discussed Trial of Labor after Counseling or discussed Circumcision preference Diagnostics Diagnostics Diagnostics Glucose 1 Hr 50 gm 114 mg/dL (70-140) 06/30/20 Hgb 12.5 g/dL (12.0-15.0) 06/30/20 Hct 39.0 % (37-47) 06/30/20 Details: HIV: Urine Culture: Sequential Screen: NIPT Screen: ROS Const Reports system reviewed and no additional complaints, except as docu Card Reports system reviewed and no additional complaints, except as docu Resp Reports system reviewed and no additional complaints, except as docu GI Reports system reviewed and no additional complaints, except as docu, Reports nausea Reports system reviewed and no additional complaints, except as docu Musc Reports system reviewed and no additional complaints, except as docu Exam Const General: cooperative, healthy appearing, comfortable, anxious HENSC Head: normal to inspection Nose: external nose normal Face and sinus: normal facial exam Neck Neck: normal visual inspection, full ROM, no lymphadenopathy Thyroid: thyroid normal Chest Chest palpation & inspection: normal inspection of the chest Resp Effort & Inspection: normal respiratory effort GI Inspection: normal to inspection Palpation: soft, other (gravid uterus) Other: infant vertex and appropriate size for gestational age Other: Cervical Exam: Extrem General: pedal edema Results POC Urinalysis 2 Dip (Clinic) Office Urine Glucose Negative Last Edit by Rosalia Flores on 09/05/20 09:43 Office Urine Protein Negative Last Edit by Rosalia Flores on 09/05/20 09:43 Assessment & Plan Problems 1. Z34.90 ntd screening declined. Carrier neg. , genetic low risk. anatomy reviewed. 2. History of delivery Z98.891 AOD 7 cm, requests RLTCS with SM scheduled 09/12/20 @ 12 3. Supervision of high-risk O09.90 [id number] STEPHEN 09/19/20 girl candis RICARDO Radha [place] 4. Tobacco use complicating O99.330 encouraged cessation. 04/23 down to 4 cig ppd 5. SGA (small for gestational age), , affecting care of mother, antepartum O36.5990 07/15 13%- repeat growth scan in 4 weeks 6. 36 weeks gestation of Z3A.36 electronic covid test ordered 08/22/20 (scheduled for 09/12/20 at 0900) 7. Marijuana user F12.90 Positive 03/24/20. Random tox screen, encouraged cessation plan RLTCS Orders Orders: POC Urinalysis 2 Dip (Clinic) Today Coding Level of Care Code Off vis,est,level 3 Diagnoses Z34.90 History of delivery Z98.891 Supervision of high-risk O09.90 Tobacco use complicating O99.330 SGA (small for gestational age), , affecting care of mother, antepartum O36.5990 36 weeks gestation of Z3A.36 Marijuana user F12.90
[2020-09-12] VITALS (18 sets, daily range): BP systolic 91–116; BP diastolic 41–76; PULSE 56–107; RESP 14–16; TEMP 35.3–36.4; O2SAT 97–100; BMI 37.9
[2020-09-12] MEDS: Lactated Ringers 1,000 ML 999 ML IV (10:10)
[2020-09-12] MEDS: Acetaminophen 500 MG Tablet 1000 MG PO ×3 (10:21→22:17)
[2020-09-12 10:25] LABS: Absolute Neutrophil Count 12.8 X10^3/uL (2.0-7.7); Basophil# 0.06 X10^3/uL; Basophil% 0.4 % (0-1); Eosinophil# 0.26 X10^3/uL; Eosinophils% 1.5 % (0-5); Hematocrit 32.1 % (37-47); Hemoglobin 10.5 g/dL (12.0-15.0); Lymphocyte % 11.7 % (19-41); Mean Corp Hgb Conc 32.7 g/dL (32-36); Mean Corpuscular Hgb 28.3 pg (27.0-32.0); Mean Corpuscular Volume 86.5 fL (81-99); Monocyte# 1.56 X10^3/uL; Monocyte% 9.1 % (0-10); NRBC Flagged by Analyzer 0 % (0-5); Neutrophil # 12.77 X10^3/uL (2.7-7.7); Neutrophil % 74.9 % (47-70); POSITIVE DIFFERENTIAL YES; Platelet Count 311 K/mm3 (150-450); RBC Distribution Width CV 13.6 % (11.6-14.6); RBC Distribution Width SD 42.6 fl (35.1-43.9); Red Blood Count 3.71 M/mm3 (4.2-5.4); White Blood Count 17.1 K/mm3 (4.4-11.0)
[2020-09-12 10:27] LABS: Differential Indicated SCAN CRITERIA MET
[2020-09-12] MEDS: Sodium Citrate/Citric Acid 30 ML UDC PO (11:04)
[2020-09-12] MEDS: Lactated Ringers 1,000 ML 150 ML IV (11:08)
[2020-09-12] MEDS: Cefazolin 2 GM in 0.9% Normal Saline 100 ML IV (11:32)
--- NOTE | 2020-09-12 11:39 | OP.PCM_ITS ---
Problem List (1) Lab test negative for COVID-19 virus Status: Acute Comment: 09/08/20 (2) 36 weeks gestation of Status: Acute Comment: electronic covid test ordered 08/22/20 (scheduled for 09/12/20 at 0900) (3) SGA (small for gestational age), , affecting care of mother, antepartum Status: Acute Comment: 07/15 13%- repeat growth scan in 4 weeks (4) Tobacco use complicating Status: Acute Qualifiers: Comment: encouraged cessation. 04/23 down to 4 cig ppd (5) Supervision of high-risk Status: Acute Qualifiers: Comment: [id number] STEPHEN 09/19/20 girl candis Garcia [place] (6) Marijuana user Status: Acute Comment: Positive 03/24/20. Random tox screen, encouraged cessation (7) History of delivery Status: Acute Comment: AOD 7 cm, requests RLTCS with SM scheduled 09/12/20 @ 12 (8) Status: Acute Qualifiers: Comment: ntd screening declined. Carrier neg. , genetic low risk. anatomy reviewed. Delivery Classification: Scheduled Final STEPHEN: 09/19/20 Gestational age: 39 Weeks and 0 Days fluorescent lamp replacer: William Mayfield Type of Anesthesia:: Spinal Special Medications: none Implants Used: none Date of Procedure: 09/12/20 Pre-Operative Diagnosis: previous cs Post-Operative Diagnosis: same Indications for : Previous Uterine Surgery Description of Procedure: Spinal anesthesia was placed without difficulty. Mayes catheter was placed. The patient was placed in the dorsal supine position with leftward tilt. Leda ent was prepped and draped in the normal sterile fashion. Pfannenstiel skin incision was made with the scalpel and carried through to the underlying layer of fascia with the scalpel. Fascia was nicked in the midline and the incision extended laterally. The rectus bellies were dissected off superiorly and inferiorly with out complication both sharply and bluntly. The peritoneum was entered digitally. The incision was stretched and a low transverse uterine incision was made with the scalpel. The fetus was palpated to be in a transverse back up position and therefore it was converted to breech and the buttocks delivered followed by the right and left arms swept anteriorly across the chest and the head flexed and delivered without complication. The cord was clamped and cut and the infant was handed off to awaiting nurse. The placenta was delivered spontaneously immediately following and was noted to be intact and have a three-vessel cord. The uterus was exteriorized cleared of all clots and debris, and the incision was closed in a double layer closure using #1 Monocryl. The ovaries and fallopian tubes were noted to be within normal limits. The uterus was returned to the maternal abdomen and gutters were cleared of all clots and debris. The peritoneum was closed with 3-0 Monocryl in a running fashion. Gloves were changed prior to fascial closure. Fascia was closed wi th 0 PDS in a running fashion. Subcutaneous tissue was copiously irrigated and the skin was closed with 3-0 Monocryl in a subcuticular fashion. Mepilex dressing was applied without complication. Patient was taken to recovery in stable condition. It was discussed with the patient that based on the clinical information obtained during this encounter, combined with her history, at this time I would recommend cesareans for future deliveries if further pregnancies are desired. Amniotic Membrane Rupture Type: Artificial Amniotic Fluid Description: Clear Placenta Disposition: [facility] Fluids Replaced: Crystalloid Cord Entanglement: None Cord Vessel Description: 3 Vessels Esitmated Blood Loss (ml): 900 Infant Gender: Female Delayed cord clamping: Yes Antibiotic Given: Ancef 2 grams IV x1 Pt instructed on risks of surgery: Bleeding, Anesthesia Risks, Infection, Need for Future C-Sections, Injury to surrounding structure(s) including bowel and bladder - Admit VTE Documentation VTE Present on Admission: No VTE Mechan Device Prophylaxis: SCD's Multi Select Codes - Urinary/Genital Urinary/Genital CPT Codes: 40343 Delivery [facility]
[2020-09-12] MEDS: Oxytocin 30 units/NS 500 ml 30 UNITS/500 ML IV.SOLN 167 UNITS IV (13:10)
--- NOTE | 2020-09-12 13:16 | NURSING ---
On admission, patient expresses desire to express colostrum for infant via pump or hand expression while in the hospital, but will feed infant formula with a bottle primarily. Does not wish to latch infant to breast.
[2020-09-12] MEDS: Lactated Ringers 1,000 ML 100 ML IV (16:10)
[2020-09-12] MEDS: Ketorolac 30 MG/ML Syringe IV ×2 (18:20→23:30)
--- NOTE | 2020-09-12 18:53 | DCINST_ITS ---
Discharge Diet: No Restrictions Discharge Activity: May Not Drive - for 2 weeks, May not drive while taking narcotic pain medications., May Shower, May Take a Tub Bath - in 7 days May resume sexual activity in: 4-6 weeks Lifting Restrictions: 20 pounds Additional Activity Instructions:: Nothing in the vagina for 4-6 weeks. You may return to work/school in 6 weeks. Call your doctor if your incision/area has: Continuous Slow Oozing, Sudden Increased Bleeding, Increased Pain/ Swelling, Increased Redness, Foul Smelling Discharge Call your doctor if you observe: Fever of 101 or Higher, Using more than one pad per hour - for 2 hours Suture Line Care: Avoid Pulling/Pushing, Avoid Pinching/Bending Cleanse incision/area with: Keep Dressing Clean & Dry Additional Instructions: If you experience any of the following, contact your healthcare provider. * Bleeding that soaks a pad every hour for 2 hours * Fever 100.4 or higher * Unrelieved incision or abdominal pain * Swelling, redness, discharge or bleeding from your incision or episiotomy site * Your incision begins to separate * Problems urinating (including inability to urinate or burning while urinating). * Visual changes * Severe headache * Flu-like symptoms * Pain or redness in one of both of your breasts * Pain, warmth, tenderness or swelling in your legs, especially the calf area * Frequent nausea and vomiting * Symptoms of depression or anxiety If you experience any of the following, call 911 or go to the nearest Emergency Room. * Chest pain * Problems breathing * Seizure activity * Partial or complete paralysis of a body part, slurred speech, weakness or drooping of the face, or a sudden inability to walk or hold your balance Allergies/Adverse Reactions: Allergies No Known Allergies Allergy (Verified 09/12/20 10:24) Medications to take at Discharge jennifer kurt, thigh high #1 ea 04/23/20 vitamin #56-iron 35 mg and 5 mg-folic acid 1 mg-dha capsule 1 cap PO DAILY 05/19/20 Boostrix Tdap 2.5 Lf unit-8 mcg-5 Lf/0.5 mL intramuscular syringe 0.5 ml IM ONCE #1 ml NS 06/30/20 Naproxen [Naprosyn] 250 - 500 mg PO Q8H PRN PRN #30 tab 09/12/20 Oxycodone HCl/Acetaminophen [Percocet 5-325] 1 - 2 tablet PO Q6H PRN PRN 7 Days #15 tablet 09/12/20 The following prescriptions were given: Naproxen [Naprosyn] 250 - 500 mg PO Q8H PRN PRN #30 tab PRN Reason: MILD PAIN Transmission Status: Pending to [facility] Oxycodone HCl/Acetaminophen [Percocet 5-325] 1 - 2 tablet PO Q6H PRN PRN 7 Days #15 tablet PRN Reason: Pain Transmission Status: Sent to [facility] Follow-Up: Call to make an appointment with your doctor for an incision check in 1-2 weeks. You will also need a 6 week post- follow up appointment. Test results from this visit will be discussed in further detail at your follow- up appointment, if applicable. Please Follow Up With: Nancy Woodard MD - Call to make an appointment for an incision check in 1-2 [phone] When: You will need a post- check in 6 weeks. Primary Care Physician: Care Physician,No Primary [Primary Care Provider] -
[2020-09-12] MEDS: Enoxaparin 40 MG/0.4 ML Syringe SC (23:31)
[2020-09-12] MEDS: 0.9% Saline Lock 10 ML Syringe IV (23:31)
--- NOTE | 2020-09-13 03:15 | PCM.PN.OB ---
Patient Problems: Active and Suspected Problems (Last Reviewed 09/05/20 @ 09:40 by Rosalia Flores) Lab test negative for COVID-19 virus (Acute) 09/08/20 36 weeks gestation of (Acute) electronic covid test ordered 08/22/20 (scheduled for 09/12/20 at 0900) SGA (small for gestational age), , affecting care of mother, antepartum (Acute) 07/15 13%- repeat growth scan in 4 weeks Tobacco use complicating (Acute) encouraged cessation. 04/23 down to 4 cig ppd Supervision of high-risk (Acute) [id number] STEPHEN 09/19/20 girl candis Garcia [place] Marijuana user (Acute) Positive 03/24/20. Random tox screen, encouraged cessation History of delivery (Acute) AOD 7 cm, requests RLTCS with SM scheduled 09/12/20 @ 12 (Acute) ntd screening declined. Carrier neg. , genetic low risk. anatomy reviewed. Subjective: Patient doing well without complaints. Tolerating PO. Ambulating and voiding without difficulty. feeding well. Denies chest pain, shortness of breath, calf pain/swelling, fevers, chills, lightheadedness. - Physical Exam Vitals/I&O's: Vital Signs Temp Pulse Resp BP Pulse Ox 97.1 F L 75 16 104/52 L 99 09/12/20 23:22 09/12/20 23:22 09/12/20 23:22 09/12/20 23:22 09/12/20 23:22 Oxygen Delivery Method Room Air Weight: 221 lb 1.978 oz Body Mass Index (BMI) 37.9 Intake and Output for Last 24 Hours 09/11/20 09/12/20 09/13/20 23:59 23:59 23:59 Intake Total 4284.03 / 4284.03 Output Total 1375 / 2275 900 / 900 Balance 2909.03 / 2009.03 -900 / -900 General: Alert, Oriented x3 Laboratory Results 09/12/20 10:10: WBC 17.1 H, RBC 3.71 L, Hgb 10.5 L, Hct 32.1 L, MCV 86.5, MCH 28.3, MCHC 32.7, RDW Std Deviation 42.6, RDW Coeff of Esperanza 13.6, Plt Count 311, MPV 10.0, Immature Gran % (Auto) 2.400 H, Neut % (Auto) 74.9 H, Lymph % (Auto) 11.7 L, [place] % (Auto) 9.1, Eos % (Auto) 1.5, Baso % (Auto) 0.4, Absolute Neuts (auto) 12.8 H, Absolute Lymphs (auto) 2.00, Nucleated RBC % 0, Differential Comment COMMENT, Diff Path Review December09/12/20 10:10: Blood Type A POSITIVE, Antibody Screen NEGATIVE Current Medications Acetaminophen (Acetaminophen 500 Mg Tablet) 1,000 mg PO Q6H CADY Bisacodyl (Bisacodyl 10 Mg Suppository) 10 mg RECTAL UD PRN PRN Reason: If no BM Diphenhydramine HCl (Diphenhydramine 25 Mg Capsule) 25 mg PO Q6H PRN PRN PRN Reason: ITCHING Stop: 09/13/20 12:55 Enoxaparin Sodium (Enoxaparin 40 Mg/0.4 Ml Syringe) 40 mg SC DAILY [facility] Last Admin: 09/12/20 23:31 Dose: 40 mg Documented by: Hydrocortisone (Hydrocortisone 2.5% Crm) 1 applic TOPICAL TID PRN PRN; Protocol PRN Reason: Discomfort Ketorolac Tromethamine (Ketorolac 30 Mg/Ml Syringe) 30 mg IV Q6 [facility] Stop: 09/13/20 12:01 Last Admin: 09/12/20 23:30 Dose: 30 mg Documented by: Methylergonovine Maleate (Methylergonovine 0.2 Mg/Ml Ampul) 0.2 mg IM X1 PRN PRN Reason: Uterine Atony Nalbuphine HCl (Nalbuphine 10 Mg/Ml Ampul) 5 mg IV Q3H PRN PRN PRN Reason: ITCHING Stop: 09/13/20 12:55 Naloxone HCl (Naloxone 0.4 Mg/Ml Syringe) 0.02 mg IV Q1M PRN PRN Reason: RR <10 and pt unresponsive Naproxen (Naproxen 250 Mg Tablet) 500 mg PO Q8H CADY Ondansetron HCl (Ondansetron 4 Mg/2 Ml Vial) 4 mg IV Q4H PRN PRN PRN Reason: Nausea Oxycodone HCl (Oxycodone 5 Mg Tablet) 5 - 10 mg PO Q4H PRN PRN PRN Reason: Pain Score 4-10 Prochlorperazine Edisylate (Prochlorperazine 10 Mg/2 Ml Vial) 10 mg IV Q6H PRN PRN PRN Reason: NAUSEA Senna/Docusate Sodium (Senna/Docusate Sodium 1 Tablet) 0 tablet PO DAILY CADY Simethicone (Simethicone 80 Mg Tablet) 80 mg PO PCHS PRN PRN Reason: Indigestion/stomach pain Sodium Chloride (0.9% Saline Lock 10 Ml Syringe) 5 - 15 ml IV UD PRN PRN Reason: SALINE FLUSH Last Admin: 09/12/20 23:31 Dose: 10 ml Documented by: Medical Necessity - Tobacco Use Smoking Status: Light Smoker (<10/day) Assessment/Plan All Active Problems (Last Reviewed 09/05/20 @ 09:40 by Rosalia Flores) Lab test negative for COVID-19 virus (Acute) 36 weeks gestation of (Acute) SGA (small for gestational age), , affecting care of mother, antepartum (Acute) Tobacco use complicating (Acute) Supervision of high-risk (Acute) Marijuana user (Acute) History of delivery (Acute) (Acute) 37 weeks gestation of (Resolved) Arrest of dilation, delivered, current hospitalization (Resolved) COVID-19 ruled out (Resolved) False labor (Resolved) IUGR (intrauterine growth restriction) (Resolved) s/p LTCS PPD # 1 1. routine post care 2. breast feeding- support given 3. rh positive 4. rubella immune
[2020-09-13 04:44] VITALS: BP 99/50; PULSE 75; RESP 16; TEMP 36.1; O2SAT 97
[2020-09-13] MEDS: Ketorolac 30 MG/ML Syringe IV (05:42)
[2020-09-13] MEDS: 0.9% Saline Lock 10 ML Syringe IV (05:43)
[2020-09-13] MEDS: Acetaminophen 500 MG Tablet 1000 MG PO ×2 (05:43→11:44)
[2020-09-13 06:02] LABS: Hematocrit 29.3 % (37-47); Hemoglobin 9.5 g/dL (12.0-15.0); Mean Corp Hgb Conc 32.4 g/dL (32-36); Mean Corpuscular Hgb 28.9 pg (27.0-32.0); Mean Corpuscular Volume 89.1 fL (81-99); Mean Platelet Vol. 10.4 fl (6.2-12.0); Platelet Count 243 K/mm3 (150-450); RBC Distribution Width CV 13.6 % (11.6-14.6); RBC Distribution Width SD 44.2 fl (35.1-43.9); Red Blood Count 3.29 M/mm3 (4.2-5.4)
[2020-09-13 08:00] VITALS: BP 95/56; PULSE 80; RESP 16; TEMP 36; O2SAT 98
[2020-09-13] MEDS: Senna/Docusate Sodium 1 Tablet PO (11:44)
--- NOTE | 2020-09-13 12:00 | CASEMGMT ---
Social Work Assessment Labor and Delivery Unit Date of Referral: 09/12/20 Time of Referral: 10:31a Referred By: Dr. Woodard Date of Intervention: 09/13/20 Time of Intervention: 12:00p Reason for Referral: Past marijuana use at 14 weeks History obtained from: Medical record and mother of baby (MOB) Household composition: MOB and father of baby (FOB) live home with 2 year old daughter, Radha. MOB reports home situation to be safe. Patient's parent/guardian status: MOB and FOB, Ryan Perez have been together for 5 years. Baby girl, Kristina is their second child together. Educational Status: MOB reports is a high school graduate with some college. MOB denies any issues with reading, writing, or learning comprehension. 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 Infant Supplies: MOB reports to have all needs met for baby including diapers, wipes, clothing, bottles, formula, crib, car seat, etc. Childcare/Caregiver(s): MOB and FOB Transportation: No issues Programs/Agencies Involved: [facility] for medical, WIC. MOB declines referral to Help Me Grow. Children Services/Legal Issues: MOB denies any involvement with children services. Behavioral Health Issues: Mental Health History: MOB reports history of depression and anxiety as a teen related to situational issues. MOB denies any current concerns for mental health. Substance Use History: MOB admits to marijuana use during first and at the beginning of this . MOB reports no current use and denies any plan to return to use once home. Maternal and Drug Screens: Tox screen not done upon MOB?s admission. Baby?s urine was negative. Family/Social Stressors: MOB and FOB deny any stressors. Support Systems: MOB and FOB report good support from both sides of their families. Depression and Anxiety/Shaken Baby/Safe Sleeping: Reviewed and resources provided. ASSESSMENT: Met with MOB and FOB in room. Introduced role and reason for consult. MOB and FOB pleasant and cooperative throughout assessment. MOB reports history of depression and anxiety and states was treated as a teen. MOB denies any current issues. MOB admits to marijuana use early in . MOB verbalizes understanding of Children Services report due to use during . MOB reports good support from FOB and their families. MOB declines need for referral to Help Me Grow. MOB provided with resources on Post- Depression. MOB states will be bottle feeding baby and has enough formula. MOB denies any needs. Safe Plan of Care for infant related to substance use: MOB states does not plan to continue use of marijuana. PLAN: Home with resources provided. Report to be made to [facility] on 09/15/20 due to positive tox screen for THC early in . Nury Griffith, PROJECT GEOPHYSICIST, TOOL DESIGNER
[2020-09-13 12:45] VITALS: BP 111/69; PULSE 81; RESP 20; TEMP 36.1
[2020-09-15 13:30] LABS: Pathologist Review Reviewed
--- NOTE | 2020-09-15 17:06 | CASEMGMT ---
SOCIAL WORK Call to [facility]. Report made to Ronak regarding MOB's use of THC early in . Baby's urine negative. Awaiting meconium results. Will call [facility] once received. Nury Griffith MSW, CONTROL TOWER OPERATOR
== END 2020-09-13 12:45 | disposition home or self-care (01) | DRG 540 ==
PROVIDERS: Admitting Provider Obstetrics & Gynecology; Referring Provider Obstetrics & Gynecology; Visit Provider Obstetrics & Gynecology
PROC: 10D00Z1 Extraction of Products of Conception, Low, Open Approach (ICD-10-PCS; CPT 59514; principal; 2020-09-12 11:45)
DX: O65.5 Obstructed labor due to abnormality of maternal pelvic organs (principal); O34.219 Maternal care for unspecified type scar from previous cesarean delivery; O36.5930 Maternal care for other known or suspected poor fetal growth, third trimester, not applicable or unspecified; O99.334 Smoking (tobacco) complicating childbirth; Z37.0 Single live birth; F12.90 Cannabis use, unspecified, uncomplicated; O99.324 Drug use complicating childbirth; F17.200 Nicotine dependence, unspecified, uncomplicated; Z3A.39 39 weeks gestation of pregnancy
CPT/HCPCS: 85025; 85027; 86850; 86900; 86901; 99218; J7120; A4216; G0378; J2405

== ENCOUNTER → 2020-11-11 11:30 | Outpatient (CLI) | payer MEDICAID, SELFPAY ==
[2020-11-11 11:29] VITALS: BMI 31.6
[2020-11-14 20:53] LABS: HPV Reflexed? NOT INDICATED
== END ==
PROVIDERS: Referring Provider Nurse Practitioner Women's Health; Visit Provider Nurse Practitioner Women's Health
DX: Z12.4 Encounter for screening for malignant neoplasm of cervix (principal)
CPT/HCPCS: 88175; G0145

== ENCOUNTER → 2022-04-13 | Outpatient (CLI) | payer MEDICAID, SELFPAY ==
[2022-04-15 22:07] LABS: Chlamydia By Nucleic Acid AMP Negative (Negative)
[2022-04-18 15:58] LABS: Gonococcus By Nucleic Acid AMP Negative (Negative)
== END | disposition home or self-care (01) ==
LOC: LABSPEC 16:01
PROVIDERS: Referring Provider Nurse Practitioner Women's Health; Visit Provider Nurse Practitioner Women's Health
DX: Z20.2 Contact with and (suspected) exposure to infections with a predominantly sexual mode of transmission (principal)
CPT/HCPCS: 87491; 87591

== ENCOUNTER → 2023-09-27 | Outpatient (CLI) | payer MEDICAID, SELFPAY ==
[2023-09-29 18:07] LABS: HPV Reflexed? NOT INDICATED
== END | disposition home or self-care (01) ==
LOC: LABSPEC 10:02
PROVIDERS: Referring Provider Nurse Practitioner Women's Health; Visit Provider Nurse Practitioner Women's Health
DX: Z12.4 Encounter for screening for malignant neoplasm of cervix (principal)
CPT/HCPCS: 88175; G0145

== ENCOUNTER 2024-12-13 11:57 | Emergency (ER) | payer MEDICAID, SELFPAY ==
[2024-12-13 11:57] VITALS: BP 129/80; PULSE 91; RESP 14; TEMP 36.6; O2SAT 100; BMI 29.4
--- NOTE | 2024-12-13 12:31 | ED.RN ---
pt in triage waiting room, walked outside for a few minutes. upon returning stopped at the triage desk and asked do you know how much longer the wait is?, this RN apologized but stated that I did not know. Pt shock her head in frustration, mumbled something and returned to waiting room complaining the her visitor about the wait.
--- NOTE | 2024-12-13 12:34 | ED.RN ---
pt returns to triage desk holding her wrist out for her wrist band to be removed, we just gonna go some where else.
== END 2024-12-13 12:33 | disposition left against medical advice (07) ==
LOC: ED 12:54
DX: T14.8XXA Other injury of unspecified body region, initial encounter (principal)